=== PATIENT | female | born 1980 | race Caucasian/White ===

== ENCOUNTER 2019-05-02 11:35 | Emergency (ER) | payer MEDICAID, SELFPAY ==
[2019-05-02 12:00] VITALS: BP 149/99; PULSE 96; RESP 16; TEMP 36.8; O2SAT 97; BMI 39.1
--- NOTE | 2019-05-02 12:13 | ED_ITS ---
HPI - Abdominal Pain General: Chief Complaint: Abdominal Pain Stated Complaint: Lower abd pain Time Seen by Provider: 05/02/19 12:13 Source: patient Mode of arrival: ambulatory Limitations: no limitations History of Present Illness: HPI narrative: Patient is a 38-year-old female who presents to ED today with complaints of right lower abdominal pain over the past 3 days; she reports nausea without vomiting; reports normal defecation and urinary habits; denies fever/chills; denies previous symptoms; patient reports pain is been constant over the past 3 days; she has not found any alleviating or worsening factors to her discomfort MD elicited complaint: abdominal pain Location: RLQ Radiation: none Migration to: no migration Exacerbating factors: nothing Relieving factors: nothing Associated Symptoms: Reports nausea; Denies belching, bloating, change in stool character, chills, diarrhea, dysuria, excessive flatus, fever(s), heartburn, fecal incontinence, syncope and vomiting Review of Systems Const: Denies: fever or chills Eyes: Denies: change in vision or blurry vision Card: Denies: chest pain, palpitations, irregular heart rhythm, lightheadedness, syncope or shortness of breath on exertion Resp: Denies: shortness of breath, productive cough or pain on inspiration GI: Reports: abdominal pain and nausea; Denies: vomiting, difficulty swallowing, heartburn/indigestion, diarrhea, bloating, belching, excessive passing of gas, fecal incontinence, painful bowel movements or change in stool character : Denies: flank pain, difficulty urinating, painful urination, urinary frequency, urinary urgency or urinary hesitancy Musc: Denies: neck pain, back pain or joint pain Skin/Breast: Denies: rash PFSH ED PFSH: Statuses (acute, chronic, etc) shown below reflect problem list status as previously entered and may not be historically accurate Social History (Updated 04/20/19 @ 09:34 by Amy Tabares LPN) Smoking and tobacco status: current every day smoker cigarettes Packs smoked per day: 0.5 Alcohol intake: never Lives independently: No Household members: children Marital status: / Current occupational status: unemployed Current gender identity: Female Physical Exam Const: COMMON NORMALS: no apparent distress, oriented x3 and alert NUTRITIONAL APPEARANCE: obese morbidly obese HENMT: COMMON NORMALS: normocephalic and head/scalp atraumatic HEAD & SCALP: normocephalic and atraumatic Chest: COMMONS NORMALS: inspection of chest normal Resp: COMMON NORMALS: normal respiratory effort and clear to auscultation bilaterally AUSCULTATION: clear to auscultation bilaterally Cardio: COMMON NORMALS: regular rate and regular rhythm RATE: regular rate RHYTHM: regular rhythm GI: COMMON NORMALS: normal to inspection, nondistended, normoactive bowel sounds, no hepatosplenomegaly and no masses AUSCULTATION: Yes normoactive bowel sounds PALPATION: Yes tender Details: RLQ and other, Yes no hepatosplenomegaly, Yes rebound tenderness present and Yes other : COMMON NORMALS: Yes no CVA tenderness BLADDER/KIDNEY EXAM: Yes no CVA tenderness Back/Pelvis: COMMON NORMALS: no CVA tenderness and thoracic and lumbar spine normal to inspection Extremity: COMMON NORMALS: normal to inspection Neuro: COMMON NORMALS: oriented x3 SENSORIUM/ORIENTATION: Yes alert Skin: COMMON NORMALS: no rashes or lesions noted GENERAL SKIN EXAM: no rashes or lesions noted Course Vital Signs: Vital signs: Vital Signs Temperature 98.2 F 05/02/19 12:00 Pulse Rate 87 05/02/19 16:15 Respiratory Rate 18 05/02/19 16:15 Blood Pressure 127/87 05/02/19 16:15 Pulse Oximetry 99 05/02/19 16:15 MDM - Abdominal Pain MDM Narrative: Medical decision making narrative: pts denies any fb ingestion so CT findings may represent her BP meds taken over the last 48 hours; vitals are normal; recommend follow up with PCP this week or early next for continued symptoms; return to ED precautions given Lab Data: Labs: Lab Results 05/02/19 05/02/19 05/02/19 Range/Units 12:19 12:19 12:19 WBC 10.2 H (4.0-10.0) 10^3/ uL RBC 5.37 H (4.1-5.3) 10^6/u L Hgb 15.8 H (11.5-15.3) g/dL Hct 47.6 H (37.0-47.0) % MCV 88.6 (81-99) fL MCH 29.4 (28.0-34.0) pg MCHC 33.2 (30.0-36.0) g/dL RDW 13.6 (12.1-15.1) % Plt Count 454 H (130-400) 10^3/c mm MPV 10.0 (7.4-10.4) fL Neut % (Auto) 78.5 % Lymph % (Auto) 14.5 % Robertson % (Auto) 4.9 % Eos % (Auto) 1.3 % Baso % (Auto) 0.5 % Neut # (Auto) 8.1 H (1.8-7.7) 10^3/u L Lymph # (Auto) 1.5 (0.8-4.8) 10^3/u L Robertson # (Auto) 0.5 (0.2-0.9) 10^3/u L Eos # (Auto) 0.1 (0.0-0.8) 10^3/u L Baso # (Auto) 0.1 (0.0-0.1) 10^3/u L Nucleated RBC % (a uto) 0 % Nucleated RBCs # 0.0 /100WBC Sodium 136 (136-145) mmol/L Potassium 4.0 (3.5-5.1) mmol/L Chloride 101 (98-107) mmol/L Carbon Dioxide 23 (22-29) mmol/L Anion Gap 16.0 (5-19) BUN 9 (6-20) mg/dL Creatinine 0.7 (0.5-0.9) mg/dL GFR Calculation 94.2 (90-130) mL/min Glucose 135 H (74-109) mg/dL Calcium 9.3 (8.6-10.0) mg/Dl Total Bilirubin 0.3 (0.15-1.2) mg/dL AST 18 (0-32) U/L ALT 18 (0-33) U/L Alkaline Phosphata se 152 H (35-105) IU/L Total Protein 8.3 (6.6-8.7) g/dL Albumin 4.5 (3.5-5.2) g/dL Globulin 3.8 (1.3-4.6) g/dL Lipase 23 (13-60) U/L HCG, Qual Negative (Negative) Urine Color (Yellow) Urine Appearance (CLEAR) Urine pH (5-7) Ur Specific Gravit y (1.005-1.030) Urine Protein (Negative) Urine Glucose (UA) (Normal) Urine Ketones (Negative) Urine Occult Blood (Negative) Urine Nitrate (Negative) Urine Bilirubin (NEGATIVE) Urine Urobilinogen (Negative) mg/dL Ur Leukocyte Carolyn ase (Negative) Urine RBC (0-2) /hpf Urine WBC (0-5) /hpf Ur Squamous Epith Cells (0-5) Urine Bacteria (NONE) 05/02/19 Range/Units 13:00 WBC (4.0-10.0) 10^3/ uL RBC (4.1-5.3) 10^6/u L Hgb (11.5-15.3) g/dL Hct (37.0-47.0) % MCV (81-99) fL MCH (28.0-34.0) pg MCHC (30.0-36.0) g/dL RDW (12.1-15.1) % Plt Count (130-400) 10^3/c mm MPV (7.4-10.4) fL Neut % (Auto) % Lymph % (Auto) % Robertson % (Auto) % Eos % (Auto) % Baso % (Auto) % Neut # (Auto) (1.8-7.7) 10^3/u L Lymph # (Auto) (0.8-4.8) 10^3/u L Robertson # (Auto) (0.2-0.9) 10^3/u L Eos # (Auto) (0.0-0.8) 10^3/u L Baso # (Auto) (0.0-0.1) 10^3/u L Nucleated RBC % (a uto) % Nucleated RBCs # /100WBC Sodium (136-145) mmol/L Potassium (3.5-5.1) mmol/L Chloride (98-107) mmol/L Carbon Dioxide (22-29) mmol/L Anion Gap (5-19) BUN (6-20) mg/dL Creatinine (0.5-0.9) mg/dL GFR Calculation (90-130) mL/min Glucose (74-109) mg/dL Calcium (8.6-10.0) mg/Dl Total Bilirubin (0.15-1.2) mg/dL AST (0-32) U/L ALT (0-33) U/L Alkaline Phosphata se (35-105) IU/L Total Protein (6.6-8.7) g/dL Albumin (3.5-5.2) g/dL Globulin (1.3-4.6) g/dL Lipase (13-60) U/L HCG, Qual (Negative) Urine Color Yellow (Yellow) Urine Appearance Clear (CLEAR) Urine pH 6.0 (5-7) Ur Specific Gravit y 1.015 (1.005-1.030) Urine Protein Neg (Negative) Urine Glucose (UA) Norm (Normal) Urine Ketones Negative (Negative) Urine Occult Blood 2+ H (Negative) Urine Nitrate Negative (Negative) Urine Bilirubin Neg (NEGATIVE) Urine Urobilinogen Norm (Negative) mg/dL Ur Leukocyte Carolyn ase Negative (Negative) Urine RBC 0-4 H (0-2) /hpf Urine WBC 0-4 H (0-5) /hpf Ur Squamous Epith Cells 15-25 H (0-5) Urine Bacteria Trace (NONE) Imaging Data ^: CT Abd/Pel: Radiologist's impression: [place] [address] CT Scan Report Signed Patient: Ruthann Jacobo MR#: [id number] : 1980 Acct:[id number] Age/Sex: 38 / F ADM Date: 05/02/19 Loc: ER Attending Dr: Ordering Physician: Dasha Hendrickson Date of Service: 05/02/19 Procedure(s): CT abdomen pelvis w con* [id number] Accession Number(s): [id number] Report Number: [id number] WS: [id number] CT ABDOMEN AND PELVIS WITH CONTRAST HISTORY: RLQ pain TECHNIQUE: Imaging performed of the abdomen and pelvis with IV contrast. Single phase imaging of the abdomen. Coronal and sagittal reformats are submitted. All CT scans at [facility] use at least one of these dose optimization techniques: automated exposure control; mA and/or kV adjustment per patient size (includes targeted exams where dose is matched to clinical indication); or iterative reconstruction. IV CONTRAST: Omnipaque 300; 95 mL IV. Oral contrast: No DLP: 1915.52 mGy.cm COMPARISON: None available. Lower thorax: Dependent changes at the lung bases. Heart is normal size. Small hiatal hernia. Liver/biliary system: Normal size with no intrahepatic dilatation. Gallbladder: Prior cholecystectomy. Pancreas: Normal. Spleen: Normal. Adrenal glands: Normal. Right kidney: Normal. Left kidney: Normal. Aorta: No aneurysm or significant atherosclerosis. Lymphadenopathy: None. Free fluid: None. GI tract: No GI tract obstruction. The appendix is not definitely visualized. No history of prior appendectomy. There is a linear foreign body measuring 1.7 mm which is hyperdense near the ileocecal valve. May be medicinal or an ingested foreign body. If this is an ingested fo reign body patient at risk for perforation. There are additional scattered high density oral objects in the GI tract therefore suspect these may be medicinal. There is no adjacent inflammation or fluid. Few sigmoid diverticula without acute inflammation. Abdominal wall: No defects, mass or hernia. Pelvis: Prior hysterectomy. Normal urinary bladder. Bones: Unremarkable. CT/CT abdomen pelvis w con* [id number] IMPRESSION: 1. The appendix is not definitely visualized. 2. Linear hyperdense object in the distal small bowel just proximal to the i leocecal valve. This could be medicinal in etiology on ingested foreign body. If this is an ingested foreign body patient is at risk for perforation. At this time there is no obstruction or inflammat ion. No free air. Similar high density objects within the GI tract therefore this may be ingested medicinal material. 3. Prior cholecystectomy and hysterectomy. Dictated By: Zaina Head DO Signed By: Zaina Head DO Signed Date/Time:05/02/19 1520 DD/ 1511 Discharge Plan Discharge Patient Disposition: Home, Self-Care Clinical Impression: Abdominal pain Qualifiers: Abdominal location: right lower quadrant Qualified Code(s): R10.31 - Right lower quadrant pain Condition: Stable Prescriptions: No Action fluticasone propionate [Flonase Allergy Relief] 50 mcg/actuation spray,suspension 1 spray INTRANASAL BID PRN (Reason: unknown) RF: 0 buspirone 15 mg tablet 15 mg PO BID RF: 0 albuterol sulfate [ProAir HFA] 90 mcg/actuation HFA aerosol inhaler 2 puff INHALATION Q6H PRN (Reason: Shortness Of Breath) RF: 0 lisinopril-hydrochlorothiazide 10-12.5 mg tablet 1 tab PO ONCE RF: 0 escitalopram oxalate [Lexapro] 20 mg tablet 20 mg PO DAILY PRN (Reason: unknown) RF: 0 clonidine HCl 0.1 mg tablet 0.1 mg PO DAILY PRN (Reason: Blood Pressure) RF: 0 fluticasone propion-salmeterol [Advair Diskus] 250-50 mcg/dose blister with device 1 inh INHALATION BID RF: 0 aspirin 81 mg tablet,delayed release (DR/EC) 81 mg PO DAILY RF: 0 ergocalciferol (vitamin D2) 50,000 unit capsule 50,000 unit PO Q7D RF: 0 Symbicort 160-4.5 mcg/actuation Hfa Aerosol Inhaler 2 puff INHALATION BID RF: 0 Discharge Orders: Discharge Order (Routine); Ordered 05/02/19 Ordered By: Dasha Hendrickson Referrals: Nikko Geiger FNP [Primary Care Provider] - Discharge Diet: Advance as tolerated Discharge Activity: Increase activity as tolerated Patient Instructions: Abdominal Pain (ED) Activity Restrictions/Additional Instructions: Follow up with primary care for continued pain. Return to ED for worsening pain, fevers greater than 100.4, intractable nausea/vomiting/diarrhea or any other concerns you may have. Discharge Date/Time: 05/02/19 16:16 Coding Level of Care Code ED Utilization Management Manager for Chg Fwd Exam Problem Focused
[2019-05-02 12:25] LABS: Basophils # 0.1 10^3/uL (0.0-0.1); Basophils % 0.5 %; Eosinophils # 0.1 10^3/uL (0.0-0.8); Eosinophils % 1.3 %; Hematocrit 47.6 % (37.0-47.0); Hemoglobin 15.8 g/dL (11.5-15.3); Lymphocytes # 1.5 10^3/uL (0.8-4.8); Lymphocytes % 14.5 %; Mean Corpuscular HGB Conc 33.2 g/dL (30.0-36.0); Mean Corpuscular Hemoglobin 29.4 pg (28.0-34.0); Mean Corpuscular Volume 88.6 fL (81-99); Monocytes # 0.5 10^3/uL (0.2-0.9); Monocytes % 4.9 %; Neutrophils # 8.1 10^3/uL (1.8-7.7); Neutrophils % 78.5 %; Nucleated Red Blood Cells % 0 %; Platelet Count 454 10^3/cmm (130-400); Red Blood Count 5.37 10^6/uL (4.1-5.3); Red Cell Distribution Width 13.6 % (12.1-15.1); White Blood Count 10.2 10^3/uL (4.0-10.0)
--- NOTE | 2019-05-02 12:29 | CT_ITS ---
WS: [id number] CT ABDOMEN AND PELVIS WITH CONTRAST HISTORY: RLQ pain TECHNIQUE: Imaging performed of the abdomen and pelvis with IV contrast. Single phase imaging of the abdomen. Coronal and sagittal reformats are submitted. All CT scans at [facility] use at least one of these dose optimization techniques: automated exposure control; mA and/or kV adjustment per patient size (includes targeted exams where dose is matched to clinical indication); or iterativ e reconstruction. IV CONTRAST: Omnipaque 300; 95 mL IV. Oral contrast: No DLP: 1915.52 mGy.cm COMPARISON: None available. Lower thorax: Dependent changes at the lung bases. Heart is normal size. Small hiatal hernia. Liver/biliary system: Normal size with no intrahepatic dilatation. Gallbladder: Prior cholecystectomy. Pancreas: Normal. Spleen: Normal. Adrenal glands: Normal. Right kidney: Normal. Left kidney: Normal. Aorta: No aneurysm or significant atherosclerosis. Lymphadenopathy: None. Free fluid: None. GI tract: No GI tract obstruction. The appendix is not definitely visualized. No history of prior quinten endectomy. There is a linear foreign body measuring 1.7 mm which is hyperdense near the ileocecal bobo ve. May be medicinal or an ingested foreign body. If this is an ingested foreign body patient at risk for perforation. There are additional scattered high density oral objects in the GI tract therefore suspect these may be medicinal. There is no adjacent inflammation or fluid. Few sigmoid diverticula w ithout acute inflammation. Abdominal wall: No defects, mass or hernia. Pelvis: Prior hysterectomy. Normal urinary bladder. Bones: Unremarkable. CT/CT abdomen pelvis w con* [id number] IMPRESSION: 1. The appendix is not definitely visualized. 2. Linear hyperdense object in the distal small bowel just proximal to the ile ocecal valve. This could be medicinal in etiology on ingested foreign body. If this is an ingested foreign body patient is at risk for perforation. At this ti me there is no obstruction or inflammation. No free air. Similar high density o bjects within the GI tract therefore this may be ingested medicinal material. 3. Prior cholecystectomy and hysterectomy.
[2019-05-02 12:48] LABS: Alanine Aminotransferase 18 U/L (0-33); Albumin Level 4.5 g/dL (3.5-5.2); Alkaline Phosphatase 152 IU/L (35-105); Aspartate Amino Transferase 18 U/L (0-32); Blood Urea Nitrogen 9 mg/dL (6-20); Calcium 9.3 mg/Dl (8.6-10.0); Carbon Dioxide 23 mmol/L (22-29); Chloride 101 mmol/L (98-107); Globulin 3.8 g/dL (1.3-4.6); Glomerular Filtration Rate 94.2 mL/min (90-130); Glucose 135 mg/dL (74-109); Lipase 23 U/L (13-60); Sodium 136 mmol/L (136-145); Total Bilirubin 0.3 mg/dL (0.15-1.2); Total Protein 8.3 g/dL (6.6-8.7)
[2019-05-02 12:59] VITALS: BP 131/87; PULSE 88; RESP 18; O2SAT 96
[2019-05-02] MEDS: sodium chloride 0.9% 1,000 ML 999 ML IV (13:46)
[2019-05-02 13:56] LABS: Add Urine Microscopic? YES; Bilirubin Urine Neg (NEGATIVE); Blood Urine 2+ (Negative); Glucose Urine UA Norm (Normal); Ketones Urine Negative (Negative); Leukocyte Esterase Urine Negative (Negative); Nitrate Urine Negative (Negative); Protein Urine Neg (Negative); Specific Gravity, Urine 1.015 (1.005-1.030); Urine Appearance Clear (CLEAR); Urine Color Yellow (Yellow); Urobilinogen Urine Norm (Negative)
[2019-05-02 14:00] VITALS: BP 141/95; RESP 18; O2SAT 97
[2019-05-02 14:07] LABS: Add Urine Culture? No; Bacteria Urine TRACE; RBC Urine 0-4 /hpf (0-2); Squamous Epithelial Cell Urine 15-25 (0-5); WBC Urine 0-4 /hpf (0-5)
[2019-05-02 14:28] LABS: HCG, Serum Qual Negative (Negative)
[2019-05-02] MEDS: iohexol 300 mg/mL 100 mL Btl IV (14:47)
[2019-05-02 16:15] VITALS: BP 127/87; PULSE 87; RESP 18; O2SAT 99
== END 2019-05-02 16:16 | disposition home or self-care (01) ==
PROVIDERS: Emergency Provider Physician Assistant; Family Provider Nurse Practitioner Family; PCP Nurse Practitioner Family
DX: R10.31 Right lower quadrant pain (principal); Z79.82 Long term (current) use of aspirin; F17.210 Nicotine dependence, cigarettes, uncomplicated
CPT/HCPCS: 36415; 74177; 80053; 81003; 83690; 84703; 85025; 96360; 99282; A9270; J7030; Q9967

== ENCOUNTER 2019-06-16 13:28 | Emergency (ER) | payer MEDICAID, SELFPAY ==
[2019-06-16 13:36] VITALS: BP 154/98; PULSE 83; RESP 15; TEMP 36.9; O2SAT 98; BMI 38.9
--- NOTE | 2019-06-16 13:52 | W.ED.EXTPRO ---
HPI - Extremity Problem General: Chief complaint: Extremity Problem,Nontraumatic Stated complaint: right leg pain/no accident Time Seen by Provider: 06/16/19 13:42 History of Present Illness: HPI Narrative: Patient complains about pain going down the right hip and leg. Has gone on since this morning when she woke up. Did do some lifting her nephew this last couple days. MD Complaint: extremity pain Onset (ago): hour(s) Pain Consistency: constant Location: right Severity scale (1-10): 6 Quality: aching Radiation: distal Relieving factors: rest Exacerbating factors: range of motion Associated symptoms: Reports no associated symptoms; Deny chest pain, fever(s) or rash Review of Systems Const: Denies: fever, chills or body aches Eyes: Denies: change in vision or blurry vision ENMT: Denies: throat pain or nasal congestion Card: Denies: chest pain or shortness of breath on exertion Resp: Denies: shortness of breath, productive cough or non-productive cough GI: Denies: abdominal pain, nausea or vomiting Musc: Reports: other (Back pain sciatica); Denies: extremity pain Skin/Breast: Denies: rash Neuro: Denies: headache Psych: Denies: anxiety or depression Bola/Lymph: Denies: easy bruising PFSH ED PFSH: Social History (Updated 04/20/19 @ 09:34 by Amy Tabares LPN) Smoking and tobacco status: current every day smoker cigarettes Packs smoked per day: 0.5 Alcohol intake: never Lives independently: No Household members: children Marital status: / Current occupational status: unemployed Current gender identity: Female Physical Exam Const: COMMON NORMALS: no apparent distress, average body habitus and oriented x3 HENMT: COMMON NORMALS: normocephalic HEAD & SCALP: normal to inspection and normocephalic FACE & SINUS: normal facial exam Eye: COMMON NORMALS: conjunctivae normal GENERAL EYE: normal appearance of both eyes CONJUNCTIVA: Yes conjunctivae normal Neck/C-Spine: COMMON NORMALS: no JVD Chest: COMMONS NORMALS: inspection of chest normal Resp: COMMON NORMALS: normal respiratory effort and clear to auscultation bilaterally AUSCULTATION: clear to auscultation bilaterally Cardio: COMMON NORMALS: no JVD, regular rate and regular rhythm RATE: regular rate RHYTHM: regular rhythm GI: COMMON NORMALS: normal to inspection, nondistended, normoactive bowel sounds Back/Pelvis: PELVIS: Yes other (Pain right sciatica from the hip down to mid thigh. Pain with straight leg lift on that side.) COCCYX: other (Pain right sciatica from the hip down to mid thigh. Pain with straight leg lift on that side.) Extremity: COMMON NORMALS: normal to inspection and full ROM Neuro: COMMON NORMALS: oriented x3 Course Vital Signs: Vital signs: Vital Signs Temperature 98.4 F 06/16/19 13:36 Pulse Rate 83 06/16/19 13:36 Respiratory Rate 15 06/16/19 13:36 Blood Pressure 154/98 06/16/19 13:36 Pulse Oximetry 98 06/16/19 13:36 Discharge Plan Discharge Prescriptions: No Action fluticasone propionate [Flonase Allergy Relief] 50 mcg/actuation spray,suspension 1 spray INTRANASAL BID PRN (Reason: unknown) RF: 0 buspirone 15 mg tablet 15 mg PO BID RF: 0 albuterol sulfate [ProAir HFA] 90 mcg/actuation HFA aerosol inhaler 2 puff INHALATION Q6H PRN (Reason: Shortness Of Breath) RF: 0 lisinopril-hydrochlorothiazide 10-12.5 mg tablet 1 tab PO ONCE RF: 0 escitalopram oxalate [Lexapro] 20 mg tablet 20 mg PO DAILY PRN (Reason: unknown) RF: 0 clonidine HCl 0.1 mg tablet 0.1 mg PO DAILY PRN (Reason: Blood Pressure) RF: 0 fluticasone propion-salmeterol [Advair Diskus] 250-50 mcg/dose blister with device 1 inh INHALATION BID RF: 0 aspirin 81 mg tablet,delayed release (DR/EC) 81 mg PO DAILY RF: 0 ergocalciferol (vitamin D2) 50,000 unit capsule 50,000 unit PO Q7D RF: 0 Symbicort 160-4.5 mcg/actuation Hfa Aerosol Inhaler 2 puff INHALATION BID RF: 0 Coding Level of Care Code ED Hospital Clinic Assistant for Demian Horan
--- NOTE | 2019-06-16 14:05 | PC.NURSE ---
Pt states she woke up this morning with extreme pain in right lower extremity. Denies any injury
[2019-06-16 14:06] VITALS: PULSE 85; RESP 16; O2SAT 97
== END 2019-06-16 14:07 | disposition home or self-care (01) ==
LOC: ER 14:07
PROVIDERS: Emergency Provider Nurse Practitioner Family; Family Provider Nurse Practitioner Family; PCP Nurse Practitioner Family
DX: M54.31 Sciatica, right side (principal); F17.210 Nicotine dependence, cigarettes, uncomplicated
CPT/HCPCS: 99281

== ENCOUNTER → 2019-10-18 10:03 | Outpatient (BNVA) | payer MEDICAID, SELFPAY | PROVIDERS: Family Provider Nurse Practitioner Family; PCP Nurse Practitioner Family; Visit Provider Urology | DX: R31.29 Other microscopic hematuria (principal) | CPT/HCPCS: 80053; 81001; 88112 ==

== ENCOUNTER 2020-08-18 18:52 | Emergency (ER) | payer MEDICAID, SELFPAY ==
[2020-08-18 19:23] VITALS: BP 132/92; PULSE 101; RESP 16; TEMP 36.6; O2SAT 94; BMI 34.4
--- NOTE | 2020-08-18 21:35 | CTR_ITS ---
PROCEDURE INFORMATION: Exam: CT Abdomen And Pelvis With Contrast Exam date and time: 08/18/2020 9:54 PM Age: 39 years old Clinical indication: Abdominal pain; Localized; Right lower quadrant (rlq); Prior surgery; Surgery type: Gb, hyst; Additional info: Rlq pain TECHNIQUE: Imaging protocol: Computed tomography of the abdomen and pelvis with contrast. Radiation optimization: All CT scans at this facility use at least one of these dose optimization techniques: automated exposure control; mA and/or kV adjustment per patient size (includes targeted exams where dose is matched to clinical indication); or iterative reconstruction. Contrast material: OMNI 300; Contrast volume: 95 ml; Contrast route: INTRAVENOUS (IV); COMPARISON: CT abdomen pelvis w con* [id number] 05/02/2019 3:01 PM RADIATION DOSE METRICS: Total DLP (mGy-cm): 1803.34 FINDINGS: Liver: Normal. No mass. Gallbladder and bile ducts: Cholecystectomy. Pancreas: Normal. No ductal dilation. Spleen: Normal. No splenomegaly. Adrenal glands: Normal. No mass. Kidneys and ureters: Normal. No hydronephrosis. Stomach and bowel: Unremarkable. No obstruction. No mucosal thickening. Appendix: No evidence of appendicitis. Intraperitoneal space: Trace free fluid in the pelvis. Vasculature: Unremarkable. No abdominal aortic aneurysm. Lymph nodes: Unremarkable. No enlarged lymph nodes. Urinary bladder: Unremarkable as visualized. Reproductive: Hysterectomy. Bones/joints: No acute fracture. Soft tissues: Unremarkable. CT/CT abdomen pelvis w con* [id number] IMPRESSION: No acute findings. Radiation Dose CTDIVOL = (mGy): DLP = 1803.34 (mGy-cm)
[2020-08-18 21:47] LABS: HCG Qualitative Urine. Negative (Negative)
[2020-08-18 21:50] LABS: Bilirubin Urine Neg (Negative); Blood Urine 2+ (Negative); Glucose Urine UA Norm (Normal); Ketones Urine Negative (Negative); Leukocyte Esterase Urine Negative (Negative); Nitrate Urine Negative (Negative); Protein Urine Neg (Negative); Specific Gravity, Urine 1.015 (1.005-1.030); Urine Appearance Clear (CLEAR); Urine Color Yellow (Yellow); Urobilinogen Urine Norm (Negative); pH Urine 5 (5-7)
[2020-08-18 21:51] LABS: Basophils # 0.1 10^3/uL (0.0-0.1); Basophils % 0.7 %; Eosinophils # 0.1 10^3/uL (0.0-0.8); Eosinophils % 0.7 %; Hematocrit 43.8 % (37.0-47.0); Hemoglobin 14.8 g/dL (11.5-15.3); Lymphocytes # 2.5 10^3/uL (0.8-4.8); Lymphocytes % 16.1 %; Mean Corpuscular HGB Conc 33.8 g/dL (30.0-36.0); Mean Corpuscular Volume 88.7 fL (81-99); Mean Platelet Volume 9.9 fL (7.4-10.4); Monocytes # 0.6 10^3/uL (0.2-0.9); Neutrophils # 12.01 10^3/uL (1.8-7.7); Neutrophils % 78.2 %; Nucleated Red Blood Cells % 0 %; Platelet Count 419 10^3/cmm (130-400); Red Blood Count 4.94 10^6/uL (4.1-5.3); Red Cell Distribution Width 13.2 % (12.1-15.1); White Blood Count 15.4 10^3/uL (4.0-10.0)
[2020-08-18 21:51] LABS: Add Urine Microscopic? YES; Bacteria Urine 1+ /hpf; RBC Urine 0-4 /hpf (0-2); Squamous Epithelial Cell Urine 0-4 /hpf (0-5); WBC Urine 0-4 /hpf (0-5)
[2020-08-18] MEDS: iohexol 300 mg/mL 100 mL Btl IV (21:56)
[2020-08-18 22:07] LABS: Alanine Aminotransferase 18 U/L (0-33); Albumin Level 4.4 g/dL (3.5-5.2); Alkaline Phosphatase 113 IU/L (35-105); Anion Gap 15.2 (5-19); Aspartate Amino Transferase 11 U/L (0-32); Blood Urea Nitrogen 6 mg/dL (6-20); Calcium 8.9 mg/dL (8.5-10.5); Carbon Dioxide 23 mmol/L (22-29); Chloride 100 mmol/L (98-107); Globulin 3.1 g/dL (1.3-4.6); Glomerular Filtration Rate 138.1 mL/min (90-130); Glucose 111 mg/dL (65-115); Lipase 32 U/L (13-60); Osmolality Calculated 276 mOsm/kg (285-295); Potassium 4.2 mmol/L (3.5-5.1); Sodium 134 mmol/L (136-145); Total Bilirubin 0.2 mg/dL (0.15-1.2); Total Protein 7.5 g/dL (6.6-8.7)
[2020-08-18 22:46] VITALS: BP 135/91; PULSE 75; RESP 16; O2SAT 99
--- NOTE | 2020-08-18 22:48 | ED_ITS ---
HPI - Abdominal Pain General: Chief Complaint: Abdominal Pain Stated Complaint: r side abd pain Time Seen by Provider: 08/18/20 21:35 Source: patient Mode of arrival: ambulatory Limitations: no limitations History of Present Illness: MD elicited complaint: abdominal pain Pertinent past history: none Onset (ago): hour(s) (2) Pain Consistency: constant Location: RLQ Quality: stabbing Radiation: none Migration to: no migration Exacerbating factors: nothing Relieving factors: nothing Associated Symptoms: Denies anorexia, belching, bloating, change in bowel habits, change in stool character, chills, coffee ground emesis, constipation, GI cramping, diarrhea, dyspepsia, dysuria, excessive flatus, fever(s), heartburn, hematochezia, hematuria, hematemesis, fecal incontinence, loose stools, melena, nausea, poor appetite, syncope and vomiting Review of Systems General: Reports: 10 or more systems reviewed and unremarkable except in HPI and below Const: Denies: fever(s) or chills Card: Denies: syncope GI: Denies: nausea, vomiting, hematemesis, coffee ground emesis, heartburn, diarrhea, constipation, bloating, GI cramping, belching, excessive flatus, fecal incontinence, change in bowel habits, change in stool character, hematochezia or melena : Denies: dysuria or hematuria PFSH ED PFSH: Medical History (Reviewed 08/19/20 @ 23:35 by Koko Clements MD, [facility] [place]) Microhematuria Surgical History (Reviewed 08/19/20 @ 23:35 by Koko Clements MD, [facility] [place]) H/O: hysterectomy History of cholecystectomy History of tubal ligation Family History (Reviewed 08/19/20 @ 23:35 by Koko Clements MD, [facility] [place]) Father Diabetes Hyperlipidemia Grandmother Diabetes Hypertension Stroke Sister Hypertension Brother Heart disease Social History (Reviewed 08/19/20 @ 23:35 by Koko Clements MD, [facility] [place]) Smoking and tobacco status: current every day smoker cigarettes Packs smoked per day: 0.5 Alcohol intake: never Lives independently: No Household members: children Marital status: / Current occupational status: unemployed Current gender identity: Female Physical Exam Const: COMMON NORMALS: no acute distress, average body habitus, patient oriented x3, no limitations, healthy appearing, alert and well nourished HENMT: COMMON NORMALS: normocephalic, atraumatic and moist oral mucous membranes HEAD & SCALP: normocephalic and atraumatic Neck/C-Spine: COMMON NORMALS: no meningeal signs and no JVD Resp: COMMON NORMALS: normal respiratory effort, No retractions, No use of accessory muscles, clear to auscultation bilaterally and percussion normal AUSCULTATION: clear to auscultation bilaterally PERCUSSION: percussion normal Cardio: COMMON NORMALS: no JVD, regular rate, regular rhythm, S1 normal heart sound present, S2 normal heart sound present, No gallops present (Cardio), No clicks present (Cardio), No murmurs present (Cardio), No rub (Cardio) and Peripheral pulses 2+ throughout RATE: regular rate RHYTHM: regular rhythm HEART SOUNDS: S1 normal heart sound present and S2 normal heart sound present PERIPHERAL PULSES: Peripheral pulses 2+ throughout GI: COMMON NORMALS: Normal to inspection, nondistended, normoactive bowel sounds present, Soft to palpation, No hepatosplenomegaly present, no masses and no bruits PALPATION: Yes Soft to palpation, Yes Tenderness to palpation present (GI) Details: RLQ, No Guarding due to palpation present (GI), No Rigid due to palpation, Yes No hepatosplenomegaly present and No Rebound tenderness present Extremity: COMMON NORMALS: normal to inspection, full ROM, capillary refill normal, no calf tenderness and no pedal edema Neuro: COMMON NORMALS: patient oriented x3 SENSORIUM/ORIENTATION: Yes alert MENINGEAL SIGNS: Yes no meningeal signs Skin: COMMON NORMALS: no rashes or lesions noted, no wounds, turgor normal, no jaundice, no petechiae and no mottling GENERAL SKIN EXAM: no rashes or lesions noted and turgor normal Course Reevaluation(s): Reevaluation #1: Discussed her lab and imaging findings with her. Unremarkable for acute findings other than mild leukocytosis. CT scan was negative for intra-abdominal acute findings. She will therefore be discharged home with no new orders. She voiced understanding and is in agreement with the plan. Time: 22:49 Vital Signs: Vital signs: Vital Signs Temperature 97.9 F 08/18/20 19:23 Pulse Rate 75 08/18/20 22:46 Respiratory Rate 16 08/18/20 22:46 Blood Pressure 135/91 08/18/20 22:46 Pulse Oximetry 99 08/18/20 22:46 MDM - Abdominal Pain MDM Narrative: Medical decision making narrative: Patient presents to the ED with RLQ pain and evaluation in the ED was negative for acute findings. She is discharged home with no new orders. Medical Records: Attestation: I reviewed the patient's medical records. Lab Data: Attestation: I reviewed the patient's lab results. Labs: Lab Results 08/18/20 08/18/20 08/18/20 Range/Units 21:45 21:45 Unknown WBC 15.4 H (4.0-10.0) 10^3/ uL RBC 4.94 (4.1-5.3) 10^6/u L Hgb 14.8 (11.5-15.3) g/dL Hct 43.8 (37.0-47.0) % MCV 88.7 (81-99) fL MCH 30.0 (28.0-34.0) pg MCHC 33.8 (30.0-36.0) g/dL RDW 13.2 (12.1-15.1) % Plt Count 419 H (130-400) 10^3/c mm MPV 9.9 (7.4-10.4) fL Neut % (Auto) 78.2 % Lymph % (Auto) 16.1 % [place] % (Auto) 4.0 % Eos % (Auto) 0.7 % Baso % (Auto) 0.7 % Neut # (Auto) 12.01 H (1.8-7.7) 10^3/u L Lymph # (Auto) 2.5 (0.8-4.8) 10^3/u L [place] # (Auto) 0.6 (0.2-0.9) 10^3/u L Eos # (Auto) 0.1 (0.0-0.8) 10^3/u L Baso # (Auto) 0.1 (0.0-0.1) 10^3/u L Nucleated RBC % (a uto) 0 % Nucleated RBCs # 0.0 /100WBC Sodium 134 L (136-145) mmol/L Potassium 4.2 (3.5-5.1) mmol/L Chloride 100 (98-107) mmol/L Carbon Dioxide 23 (22-29) mmol/L Anion Gap 15.2 (5-19) BUN 6 (6-20) mg/dL Creatinine 0.5 (0.5-0.9) mg/dL GFR Calculation 138.1 H (90-130) mL/min Glucose 111 (65-115) mg/dL Calculated Osmolal ity 276 L (285-295) mOsm/k g Calcium 8.9 (8.5-10.5) mg/dL Total Bilirubin 0.2 (0.15-1.2) mg/dL AST 11 (0-32) U/L ALT 18 (0-33) U/L Alkaline Phosphata se 113 H (35-105) IU/L Total Protein 7.5 (6.6-8.7) g/dL Albumin 4.4 (3.5-5.2) g/dL Globulin 3.1 (1.3-4.6) g/dL Lipase 32 (13-60) U/L HCG, Qual Negative (Negative) Urine Color (Yellow) Urine Appearance (CLEAR) Urine pH (5-7) Ur Specific Gravit y (1.005-1.030) Urine Protein (Negative) Urine Glucose (UA) (Normal) Urine Ketones (Negative) Urine Blood (Negative) Urine Nitrate (Negative) Urine Bilirubin (Negative) Urine Urobilinogen (Negative) mg/dL Ur Leukocyte Carolyn ase (Negative) Urine RBC (0-2) /hpf Urine WBC (0-5) /hpf Ur Squamous Epith Cells (0-5) /hpf Amorphous Sediment Urine Bacteria (NONE) /hpf 08/18/20 Range/Units Unknown WBC (4.0-10.0) 10^3/ uL RBC (4.1-5.3) 10^6/u L Hgb (11.5-15.3) g/dL Hct (37.0-47.0) % MCV (81-99) fL MCH (28.0-34.0) pg MCHC (30.0-36.0) g/dL RDW (12.1-15.1) % Plt Count (130-400) 10^3/c mm MPV (7.4-10.4) fL Neut % (Auto) % Lymph % (Auto) % [place] % (Auto) % Eos % (Auto) % Baso % (Auto) % Neut # (Auto) (1.8-7.7) 10^3/u L Lymph # (Auto) (0.8-4.8) 10^3/u L [place] # (Auto) (0.2-0.9) 10^3/u L Eos # (Auto) (0.0-0.8) 10^3/u L Baso # (Auto) (0.0-0.1) 10^3/u L Nucleated RBC % (a uto) % Nucleated RBCs # /100WBC Sodium (136-145) mmol/L Potassium (3.5-5.1) mmol/L Chloride (98-107) mmol/L Carbon Dioxide (22-29) mmol/L Anion Gap (5-19) BUN (6-20) mg/dL Creatinine (0.5-0.9) mg/dL GFR Calculation (90-130) mL/min Glucose (65-115) mg/dL Calculated Osmolal ity (285-295) mOsm/k g Calcium (8.5-10.5) mg/dL Total Bilirubin (0.15-1.2) mg/dL AST (0-32) U/L ALT (0-33) U/L Alkaline Phosphata se (35-105) IU/L Total Protein (6.6-8.7) g/dL Albumin (3.5-5.2) g/dL Globulin (1.3-4.6) g/dL Lipase (13-60) U/L HCG, Qual (Negative) Urine Color Yellow (Yellow) Urine Appearance Clear (CLEAR) Urine pH 5 (5-7) Ur Specific Gravit y 1.015 (1.005-1.030) Urine Protein Neg (Negative) Urine Glucose (UA) Norm (Normal) Urine Ketones Negative (Negative) Urine Blood 2+ H (Negative) Urine Nitrate Negative (Negative) Urine Bilirubin Neg (Negative) Urine Urobilinogen Norm (Negative) mg/dL Ur Leukocyte Carolyn ase Negative (Negative) Urine RBC 0-4 H (0-2) /hpf Urine WBC 0-4 H (0-5) /hpf Ur Squamous Epith Cells 0-4 H (0-5) /hpf Amorphous Sediment Not Reportable Urine Bacteria 1+ H (NONE) /hpf Imaging Data ^: CT Abd/Pel: Attestation: I personally reviewed and interpreted this imaging study as follows: Radiologist's impression: [place] [id number] [facility], [place] [address] Scan ReportSigned Patient: Ruthann Jacobo #: [id number]: 1980Acct#:[id number]/S ex: 39 / FADM Date: 08/18/20Loc: ERRoom/Bed:Attending Dr: Ordering Provider/Ordering MD: Koko Clements MD, [facility] [place] Date of Service: 08/18/20 Procedure(s): CT abdomen pelvis w con* [id number] Accession Number(s): [id number] Report Number: [id number] PROCEDURE INFORMATION: Exam: CT Abdomen And Pelvis With Contrast Exam date and time: 08/18/2020 9:54 PM Age: 39 years old Clinical indication: Abdominal pain; Localized; Right lower quadrant (rlq); Prior surgery; Surgery type: Gb, hyst; Additional info: Rlq pain TECHNIQUE: Imaging protocol: Computed tomography of the abdomen and pelvis with contrast. Radiation optimization: All CT scans at this facility use at least one of these dose optimization techniques: automated exposure control; mA and/or kV adjustment per patient size (includes targeted exams where dose is matched to clinical indication); or iterative reconstruction. Contrast material: OMNI 300; Contrast volume: 95 ml; Contrast route: INTRAVENOUS (IV); COMPARISON: CT abdomen pelvis w con* [id number] 05/02/2019 3:01 PM RADIATION DOSE METRICS: Total DLP (mGy-cm): 1803.34 FINDINGS: Liver: Normal. No mass. Gallbladder and bile ducts: Cholecystectomy. Pancreas: Normal. No ductal dilation. Spleen: Normal. No splenomegaly. Adrenal glands: Normal. No mass. Kidneys and ureters: Normal. No hydronephrosis. Stomach and bowel: Unremarkable. No obstruction. No mucosal thickening. Appendix: No evidence of appendicitis. Intraperitoneal space: Trace free fluid in the pelvis. Vasculature: Unremarkable. No abdominal aortic aneurysm. Lymph nodes: Unremarkable. No enlarged lymph nodes. Urinary bladder: Unremarkable as visualized. Reproductive: Hysterectomy. Bones/joints: No acute fracture. Soft tissues: Unremarkable. CT/CT abdomen pelvis w con* [id number] IMPRESSION: No acute findings. Radiation Dose CTDIVOL = (mGy): DLP = 1803.34 (mGy-cm) Dictated By:Kadeem Dial MDSigned By:Kadeem Dial MDSigned Date/Time:08/18/202244DD/ 42 Discharge Plan Discharge Patient Disposition: Home Clinical Impression: Abdominal pain, RLQ Condition: Stable Prescriptions: Continued albuterol sulfate [ProAir HFA] 90 mcg/actuation HFA aerosol inhaler 2 puff INHALATION Q6H PRN (Reason: Shortness Of Breath) RF: 0 atorvastatin 40 mg tablet 40 mg PO DAILY RF: 0 methocarbamol 750 mg tablet 750 mg PO TID RF: 0 Trulicity 0.75 mg/0.5 mL pen injector SUBCUT RF: 0 ascorbate calcium (vitamin C) PO RF: 0 lidocaine HCl 2 % jelly 1 applic INTRA-URET ONCE Qty: 1 RF: 0 meloxicam 15 mg tablet 15 mg PO DAILY RF: 0 cetirizine 10 mg capsule 10 mg PO DAILY RF: 0 nitroglycerin 0.4 mg tablet, sublingual See Rx Instructions .ROUTE .COMPLEX Qty: 25 RF: 3 ergocalciferol (vitamin D2) 50,000 unit capsule 50,000 unit PO Q7D RF: 0 Symbicort 160-4.5 mcg/actuation Hfa Aerosol Inhaler 2 puff INHALATION BID RF: 0 Discharge Orders: Discharge ED (Routine); Ordered 08/18/20 Ordered By: Koko Clements Referrals: Samina Garcia, [employer] [Primary Care Provider] - 1-3 days Discharge Diet: Usual diet Discharge Activity: Increase activity as tolerated Patient Instructions: Abdominal Pain (ED) Activity Restrictions/Additional Instructions: Return for any new or worsening symptoms. Follow-up with your primary care provider within 3 days. Continue home medications. Coding Level of Care Code ED [employer]ier for Demian Horan
== END 2020-08-18 22:54 | disposition home or self-care (01) ==
PROVIDERS: Emergency Medicine; Emergency Provider Family Medicine; PCP Nurse Practitioner Family
DX: R10.31 Right lower quadrant pain (principal); F17.210 Nicotine dependence, cigarettes, uncomplicated
CPT/HCPCS: 74177; 80053; 81001; 81025; 83690; 85025; 99283; Q9967

== ENCOUNTER → 2021-01-26 08:39 | Outpatient (BNVA) | payer MEDICAID, SELFPAY | PROVIDERS: PCP Nurse Practitioner Family; Visit Provider Urology | DX: R31.29 Other microscopic hematuria (principal) | CPT/HCPCS: 81003 ==

== ENCOUNTER → 2021-02-02 08:40 | Outpatient (BNVA) | payer MEDICAID, SELFPAY | PROVIDERS: PCP Nurse Practitioner Family; Visit Provider Specialist | DX: M25.561 Pain in right knee (principal) | CPT/HCPCS: 73560; 73565 ==

== ENCOUNTER 2021-03-30 10:59 | Outpatient (CLI) | payer MEDICAID, SELFPAY ==
--- NOTE | 2021-03-30 11:45 | MR_ITS ---
WS: [id number] MRI RIGHT KNEE HISTORY: M25.569 - Pain in unspecified knee COMPARISON: Knee radiograph 02/02/2021 Anterior cruciate ligament: Normal course of the ACL. No tear identified. Posterior cruciate ligament: Intact. Medial collateral ligament: Intact. Posterior lateral corner structures: Intact. Medial menisci: Intact. Normal signal, size and shape. Lateral meniscus: Intact. Normal signal, size and shape. Extensor mechanism: Distal quadriceps tendon and patellar tendons are intact. Fluid and soft tissue: No joint effusion. No Bowden's cyst. Osseous and articular structures: Patellofemoral compartment: Normal. Medial compartment: Very minimal narrowing of the joint space with fissuring of the cartilage. No ful l thickness defect or marrow edema. Lateral compartment: Normal. There is a very small amount of increased T2 signal in the subcutaneous soft tissue over the medial k nee near the distal femur. Small amount of increased signal at the head of the medial gastrocnemius. There is also very small amount of increased signal in the posterior distal femoral diaphysis which c ould be from a prior bone contusion. No fractures identified. MR/MR knee RT wo con* [id number] IMPRESSION: 1. Minimal soft tissue edema likely from a prior contusion involving the media l knee. Small amount of edema at the insertion site of the medial head of the g astrocnemius. Partial insertion site tear is suspected. 2. Very small amount of increased marrow signal in the posterior distal femora l diaphysis may be from a minor trabecular injury. No fracture. 3. No joint effusion.
== END 2021-03-30 11:00 | disposition home or self-care (01) ==
LOC: RADSHAW 11:01
PROVIDERS: PCP Nurse Practitioner Family; Visit Provider Specialist
DX: G62.89 Other specified polyneuropathies (principal); M25.562 Pain in left knee; M62.81 Muscle weakness (generalized); S89.90XA Unspecified injury of unspecified lower leg, initial encounter; F17.210 Nicotine dependence, cigarettes, uncomplicated; X58.XXXA Exposure to other specified factors, initial encounter
CPT/HCPCS: 73721; 95886; 95909

== ENCOUNTER → 2021-06-24 08:01 | Outpatient (BNVA) | payer MEDICAID, SELFPAY | PROVIDERS: PCP Nurse Practitioner Family; Referring Provider Nurse Practitioner Family; Visit Provider Specialist | DX: E11.42 Type 2 diabetes mellitus with diabetic polyneuropathy (principal); Z79.899 Other long term (current) drug therapy; G57.10 Meralgia paresthetica, unspecified lower limb; M21.41 Flat foot [pes planus] (acquired), right foot; M21.42 Flat foot [pes planus] (acquired), left foot; M54.9 Dorsalgia, unspecified; G89.29 Other chronic pain; M17.11 Unilateral primary osteoarthritis, right knee | CPT/HCPCS: 64447; 64450; 99214; 99215; J1030; J3490 ==

== ENCOUNTER 2021-09-16 12:07 | Oncology outpatient (recurring) (ONCR) | payer MEDICAID, SELFPAY ==
[2021-09-16 12:58] LABS: Basophils # 0.1 10^3/uL (0.0-0.1); Basophils % 0.8 %; Eosinophils # 0.1 10^3/uL (0.0-0.8); Eosinophils % 0.8 %; Hematocrit 44.9 % (37.0-47.0); Hemoglobin 14.9 g/dL (11.5-15.3); Lymphocytes # 2.3 10^3/uL (0.8-4.8); Lymphocytes % 21.8 %; Mean Corpuscular HGB Conc 33.2 g/dL (30.0-36.0); Mean Corpuscular Hemoglobin 29.3 pg (28.0-34.0); Mean Corpuscular Volume 88.4 fl (81-99); Mean Platelet Volume 10.1 fL (7.4-10.4); Monocytes # 0.5 10^3/uL (0.2-0.9); Monocytes % 4.9 %; Neutrophils # 7.57 10^3/uL (1.8-7.7); Neutrophils % 71.3 %; Nucleated Red Blood Cells % 0 %; Platelet Count 397 10^3/cmm (130-400); Red Blood Count 5.08 10^6/uL (4.1-5.3); Red Cell Distribution Width 13.4 % (12.1-15.1); White Blood Count 10.6 10^3/uL (4.0-10.0)
== END 2021-09-22 23:59 | disposition home or self-care (01) ==
PROVIDERS: PCP Nurse Practitioner Family; Visit Provider Internal Medicine Hematology & Oncology
DX: D72.829 Elevated white blood cell count, unspecified (principal); M17.11 Unilateral primary osteoarthritis, right knee; J44.9 Chronic obstructive pulmonary disease, unspecified; E11.9 Type 2 diabetes mellitus without complications; Z79.4 Long term (current) use of insulin; F17.200 Nicotine dependence, unspecified, uncomplicated
CPT/HCPCS: 85025; 99203; 99999

== ENCOUNTER 2021-11-26 11:05 | Oncology outpatient (recurring) (ONCR) | payer MEDICAID, SELFPAY ==
[2021-11-26 11:49] LABS: Basophils # 0.1 10^3/uL (0.0-0.1); Basophils % 0.9 %; Eosinophils # 0.1 10^3/uL (0.0-0.8); Eosinophils % 1.2 %; Hematocrit 44.3 % (37.0-47.0); Hemoglobin 14.6 g/dL (11.5-15.3); Lymphocytes # 2.6 10^3/uL (0.8-4.8); Lymphocytes % 26.7 %; Mean Corpuscular Hemoglobin 29.4 pg (28.0-34.0); Mean Corpuscular Volume 89.1 fl (81-99); Mean Platelet Volume 10.2 fL (7.4-10.4); Monocytes # 0.5 10^3/uL (0.2-0.9); Monocytes % 4.8 %; Neutrophils # 6.41 10^3/uL (1.8-7.7); Neutrophils % 66.3 %; Nucleated Red Blood Cells % 0 %; Platelet Count 419 10^3/cmm (130-400); Red Blood Count 4.97 10^6/uL (4.1-5.3); White Blood Count 9.7 10^3/uL (4.0-10.0)
== END 2021-12-23 23:59 | disposition home or self-care (01) ==
PROVIDERS: Nurse Practitioner Family; PCP Nurse Practitioner Family; Visit Provider Internal Medicine Hematology & Oncology
DX: D72.829 Elevated white blood cell count, unspecified (principal); F17.210 Nicotine dependence, cigarettes, uncomplicated
CPT/HCPCS: 36415; 85025; 99214; G0463

== ENCOUNTER → 2022-08-26 07:44 | Outpatient (BNVA) | payer MEDICAID, SELFPAY | PROVIDERS: PCP Nurse Practitioner Family; Referring Provider Registered Nurse; Visit Provider Physician Assistant | DX: M54.9 Dorsalgia, unspecified (principal); G89.29 Other chronic pain | CPT/HCPCS: 72110; 99203 ==

== ENCOUNTER 2022-08-30 08:53 | Outpatient (CLI) | payer MEDICAID, SELFPAY ==
--- NOTE | 2022-08-30 | US_ITS ---
DIAGNOSTIC BILATERAL DIGITAL BREAST TOMOSYNTHESIS MAMMOGRAPHY WITH CAD RIGHT breast ultrasound, limited HISTORY: RT BREAST PAIN, pain along the inferior posterior breast. COMPARISON: None available. TECHNIQUE: Bilateral craniocaudad, mediolateral oblique, and mediolateral views are submitted with tomosynthesis and SM. Spot compression RIGHT MLO. Computer aided detection utilized. Breast composition: There are scattered areas of fibroglandular density. No underlying abnormality is noted in the posterior inferior RIGHT breast near the pain marker site. No suspicious masses or calcifications. RIGHT breast ultrasound, limited. Ultrasound directed to the area of pain at 8:00, 7 cm from the nipple. No mass or abnormality is identified. IMPRESSION: BI-RADS: 2-Benign FOLLOW UP: 1 Year Follow-up [facility]ER
--- NOTE | 2022-08-30 09:58 | MM_ITS ---
WS: [id number] DIAGNOSTIC BILATERAL DIGITAL BREAST TOMOSYNTHESIS MAMMOGRAPHY WITH CAD RIGHT breast ultrasound, limited HISTORY: RT BREAST PAIN, pain along the inferior posterior breast. COMPARISON: None available. TECHNIQUE: Bilateral craniocaudad, mediolateral oblique, and mediolateral views are submitted with to mosynthesis and SM. Spot compression RIGHT MLO. Computer aided detection utilized. Breast composition: There are scattered areas of fibroglandular density. No underlying abnormality is noted in the posterior inferior RIGHT breast near the pain marker site. No suspicious masses or calc ifications. RIGHT breast ultrasound, limited. Ultrasound directed to the area of pain at 8:00, 7 cm from the nipple. No mass or abnormality is iden tified. MM/[place] [id number] IMPRESSION: BI-RADS: 2-Benign FOLLOW UP: 1 Year Follow-up
== END 2022-08-30 08:54 | disposition home or self-care (01) ==
PROVIDERS: PCP Family Medicine; Visit Provider Family Medicine
DX: N64.4 Mastodynia (principal)
CPT/HCPCS: 76642; 77062; G0279

== ENCOUNTER → 2022-12-30 07:57 | Outpatient (BNVA) | payer MEDICAID, SELFPAY | PROVIDERS: PCP Family Medicine; Referring Provider Registered Nurse; Visit Provider Specialist | DX: M21.41 Flat foot [pes planus] (acquired), right foot (principal); M21.42 Flat foot [pes planus] (acquired), left foot; R20.0 Anesthesia of skin; R20.2 Paresthesia of skin | CPT/HCPCS: 95910 ==

== ENCOUNTER → 2023-02-22 11:54 | Outpatient (BNVA) | payer MEDICAID, SELFPAY | PROVIDERS: PCP Family Medicine; Visit Provider Specialist | DX: M54.9 Dorsalgia, unspecified (principal); G89.29 Other chronic pain; E11.9 Type 2 diabetes mellitus without complications; F17.210 Nicotine dependence, cigarettes, uncomplicated | CPT/HCPCS: 99204; 99214; 99215 ==

== ENCOUNTER → 2023-03-22 08:34 | Outpatient (BNVA) | payer MEDICAID, SELFPAY | PROVIDERS: PCP Family Medicine; Referring Provider Family Medicine; Visit Provider Specialist | DX: G62.89 Other specified polyneuropathies (principal); R53.1 Weakness | CPT/HCPCS: 95910 ==

== ENCOUNTER → 2023-05-24 07:58 | Outpatient (BNVA) | payer MEDICAID, SELFPAY | PROVIDERS: PCP Family Medicine; Referring Provider Registered Nurse; Visit Provider Surgery | DX: R22.2 Localized swelling, mass and lump, trunk (principal) | CPT/HCPCS: 99204 ==

== ENCOUNTER 2023-06-27 07:16 | Outpatient (CLI) | payer MEDICAID, SELFPAY ==
--- NOTE | 2023-06-27 08:00 | US_ITS ---
WS: [id number] RIGHT UPPER QUADRANT ULTRASOUND HISTORY: ruq abdominal wall mass COMPARISON: CT abdomen 08/18/2020 Liver: 18.2 cm in length. Moderately enlarged liver with dense echotexture. The entire liver is not v isualized well due to marked attenuation. The liver is very echogenic. No bile duct dilatation. Portal Vein: Normal hepatopetal flow with monophasic waveform. Gallbladder: Prior cholecystectomy. CBD: 0.3 cm Pancreas: Normal size and echogenicity. Right kidney: 11.0 cm in length. Poorly visualized kidney due to body habitus. No hydronephrosis. Mas s would be difficult to exclude. Aorta and IVC: Unremarkable abdominal aorta and IVC. No ascites. No mass identified in the soft tissues of the RIGHT upper quadrant. IMPRESSION: 1. Technically very difficult evaluation of the RIGHT upper quadrant due to body habitus. 2. Moderately enlarged liver with severe hepatic steatosis. Liver is very dense and difficult to pen etrate. 3. Prior cholecystectomy. 4. No RIGHT upper quadrant mass seen.
== END 2023-06-27 07:17 | disposition home or self-care (01) ==
LOC: RAD 07:16
PROVIDERS: PCP Family Medicine; Visit Provider Surgery
DX: M89.8X8 Other specified disorders of bone, other site (principal); R19.01 Right upper quadrant abdominal swelling, mass and lump; K76.0 Fatty (change of) liver, not elsewhere classified; R16.0 Hepatomegaly, not elsewhere classified; Z90.49 Acquired absence of other specified parts of digestive tract
CPT/HCPCS: 76705; 99214

== ENCOUNTER → 2024-01-04 08:29 | Outpatient (BNVA) | payer MEDICAID, SELFPAY | PROVIDERS: PCP Family Medicine; Visit Provider Podiatrist Foot & Ankle Surgery | DX: M25.572 Pain in left ankle and joints of left foot (principal); E11.9 Type 2 diabetes mellitus without complications; Z79.4 Long term (current) use of insulin; S99.912A Unspecified injury of left ankle, initial encounter; S93.402A Sprain of unspecified ligament of left ankle, initial encounter; X58.XXXA Exposure to other specified factors, initial encounter | CPT/HCPCS: 99203 ==

== ENCOUNTER → 2024-01-26 09:31 | Outpatient (BNVA) | payer MEDICAID, SELFPAY | PROVIDERS: PCP Family Medicine; Visit Provider Podiatrist Foot & Ankle Surgery | DX: E11.9 Type 2 diabetes mellitus without complications; Z79.4 Long term (current) use of insulin; S99.912A Unspecified injury of left ankle, initial encounter; S93.402A Sprain of unspecified ligament of left ankle, initial encounter; X58.XXXA Exposure to other specified factors, initial encounter | CPT/HCPCS: 99213 ==

== ENCOUNTER → 2024-02-16 09:22 | Outpatient (BNVA) | payer MEDICAID, SELFPAY | PROVIDERS: PCP Family Medicine; Visit Provider Podiatrist Foot & Ankle Surgery | DX: S93.409A Sprain of unspecified ligament of unspecified ankle, initial encounter (principal); E11.9 Type 2 diabetes mellitus without complications; Z79.4 Long term (current) use of insulin; X58.XXXA Exposure to other specified factors, initial encounter | CPT/HCPCS: 99213 ==

== ENCOUNTER 2024-08-07 11:44 | Outpatient (CLI) | payer MEDICAID, SELFPAY ==
--- NOTE | 2024-08-07 11:49 | ECG_ITS ---
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 Baseline heart rate was 77 beats per minute. Baseline blood pressure was 116/81 millimeters of mercury. Target heart rate was 178 beats per minute. Maximum heart rate achieved was 158, which was 87% of the target heart rate. Maximum blood pressure was 180/104 millimeters of mercury. Total exercise time was 3 minutes. Maximum METs achieved was 4.6, maximum VO2 was 16. The reason for ending the test was maximum effort achieved. The patient complained of shortness of breath during the stress test, which then resolved at the end of the test. ELECTROCARDIOGRAM: BASELINE: Showed sinus rhythm, normal axis, no significant ST-T changes at the baseline noted. EXERCISE: At the peak exercise level, no significant ST-T changes suggestive of ischemia noted. RECOVERY: During the recovery period, heart rate dropped appropriately. No significant ST-T changes in the recovery suggestive of ischemia noted. CONCLUSION: 1. Exercise capacity poor. 2. Heart rate response was tachycardic. 3. Blood pressure response was appropriate. 4. Symptoms not suggestive of ischemia. 5. Electrocardiogram portion of the stress test was not suggestive of ischemia. 6. Nuclear scan will be documented separately. Electronically Signed On 08-28-2024 18:05:25 CDT by LAKEISHA WRIGHT [email or web address]
[2024-08-07 11:52] VITALS: BMI 42.7
[2024-08-07 12:18] VITALS: BP 139/80; PULSE 106
== END 2024-08-07 11:45 | disposition home or self-care (01) ==
PROVIDERS: PCP Family Medicine; Visit Provider Family Medicine
DX: M17.11 Unilateral primary osteoarthritis, right knee (principal); R07.9 Chest pain, unspecified; R93.1 Abnormal findings on diagnostic imaging of heart and coronary circulation; R00.0 Tachycardia, unspecified
CPT/HCPCS: 20610; 73560; 73565; 93017; 99204; J3301; J9999

== ENCOUNTER 2024-08-13 21:35 | Emergency (ER) | payer MEDICAID, SELFPAY ==
[2024-08-13 21:37] VITALS: BP 161/74; PULSE 84; RESP 18; TEMP 36.4; O2SAT 99
--- NOTE | 2024-08-13 21:49 | XRR_ITS ---
PROCEDURE INFORMATION: Exam: XR Chest Exam date and time: 08/13/2024 10:01 PM Age: 43 years old Clinical indication: Other: CVA TECHNIQUE: Imaging protocol: Radiologic exam of the chest. Views: 1 view. COMPARISON: CT abdomen pelvis w con* [id number] 08/18/2020 10:09 PM FINDINGS: Lungs: Expiratory. Bibasilar atelectasis. Pleural spaces: Unremarkable. No pleural effusion. No pneumothorax. Heart/Mediastinum: Unremarkable. No cardiomegaly. Bones/joints: Unremarkable. XR/XR chest 1V portable [id number] IMPRESSION: Expiratory film with bibasilar atelectasis but without significant acute infiltrate.
--- NOTE | 2024-08-13 21:51 | CTR_ITS ---
PROCEDURE INFORMATION: Exam: CT Head Without Contrast Exam date and time: 08/13/2024 9:57 PM Age: 43 years old Clinical indication: Stroke-like symptoms; Speech disturbance; Additional info: Symptoms of acute stroke TECHNIQUE: Imaging protocol: Computed tomography of the head without contrast. Radiation optimization: All CT scans at this facility use at least one of these dose optimization techniques: automated exposure control; mA and/or kV adjustment per patient size (includes targeted exams where dose is matched to clinical indication); or iterative reconstruction. Other technique: STROKE PROTOCOL was implemented. COMPARISON: MR head wo/w con [id number] 02/02/2023 11:31 AM RADIATION DOSE METRICS: Total DLP (mGy-cm): 996.18 FINDINGS: Brain: Normal. No hemorrhage. Unremarkable white matter. No mass effect. Cerebral ventricles: No ventriculomegaly. Paranasal sinuses: Visualized sinuses are unremarkable. No fluid levels. Mastoid air cells: Visualized mastoid air cells are well aerated. Bones: Unremarkable. No acute fracture. Soft tissues: Unremarkable. CT/CT head thrombolytic [id number] IMPRESSION: No acute intracranial abnormality. ASSESSMENT: ASPECTS ([place] Stroke Program Early CT Score) is 10.
--- NOTE | 2024-08-13 21:51 | ECG_ITS ---
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 Measurements Intervals [place] Rate: 78 P: 15 MN: 152 QRS: -9 QRSD: 90 T: 18 QT: 365 QTc: 418 Interpretive Statements SINUS RHYTHM MODERATE VOLTAGE CRITERIA FOR LVH, CONSIDER NORMAL VARIANT [MEETS CRITERIA IN ONE OF: R(aVL), S(V1), R(V5), R(V5/V6)+S(V1)] No previous ECG available for comparison Electronically Signed On 08-14-2024 21:22:18 CDT by Diandra Hernandez M.D. [email or web address]
--- NOTE | 2024-08-13 21:53 | W.ED.WEAKNES ---
HPI - Weakness General: Chief complaint: Weakness Stated complaint: stroke like symptoms Time Seen by Provider: 08/13/24 21:42 Source: patient Mode of arrival: ambulatory Limitations: no limitations History of Present Illness: 43-year-old female who states that since last Tuesday she has been having word finding difficulty along with left-sided weakness and numbness. States she had weakness in her arm and hard time walking her left leg. She seen at [facility] then she denies any worsening improving factors no history of stroke in the past. Associated symptoms: Denies chest pain, chills, fever(s), headache(s), nausea or vomiting Review of Systems Const: Denies: fever(s), chills, body aches or change in appetite Eyes: Denies: blurry vision or eye discomfort ENMT: Denies: throat pain or dental pain Card: Denies: chest pain Resp: Denies: dyspnea GI: Denies: abdominal pain, nausea, vomiting or diarrhea Musc: Denies: neck pain or back pain Skin/Breast: Denies: rash Neuro: Reports: weakness in extremities and Slurred speech present; Denies: headache(s) PFSH ED PFSH: Medical History Leukocytosis Microhematuria Surgical History H/O: hysterectomy History of cholecystectomy History of tubal ligation Family History Father Diabetes Hyperlipidemia Grandmother Diabetes Hypertension Stroke Sister Hypertension Brother Heart disease Social History Smoking and tobacco/nicotine status: current every day tobacco/nicotine user cigarettes Packs smoked per day: 0.5 Alcohol intake: never Substance/Drug Use: never Lives independently: No Household members: children Marital status: Life Partner Current occupational status: unemployed Current gender identity: Female Physical Exam Const: COMMON NORMALS: no acute distress, patient oriented x3 and healthy appearing HENMT: COMMON NORMALS: normocephalic and atraumatic HEAD & SCALP: normocephalic and atraumatic Eye: COMMON NORMALS: Equal, round and reactive pupils present and EOMs intact bilaterally PUPIL: Yes Equal, round and reactive pupils present Neck/C-Spine: COMMON NORMALS: full ROM and supple Chest: COMMONS NORMALS: normal inspection of the chest Resp: COMMON NORMALS: normal respiratory effort, No retractions, No use of accessory muscles and clear to auscultation bilaterally AUSCULTATION: clear to auscultation bilaterally Cardio: COMMON NORMALS: regular rate, regular rhythm and No murmurs present (Cardio) RATE: regular rate RHYTHM: regular rhythm Extremity: COMMON NORMALS: normal to inspection and full ROM Neuro: COMMON NORMALS: patient oriented x3, moves all extremities and no focal motor deficits CRANIAL NERVES: Yes CN normal except as noted OTHER: slight decreased sensation to left arm and leg Psych: COMMON NORMALS: mental status grossly normal, Normal thought process present and cooperative THOUGHT PROCESS: Normal thought process present Skin: COMMON NORMALS: no rashes or lesions noted and no wounds GENERAL SKIN EXAM: no rashes or lesions noted Course Vital Signs: Vital signs: Vital Signs Temperature 97.5 F L 08/13/24 21:37 Pulse Rate 74 08/13/24 23:00 Respiratory Rate 20 H 08/13/24 23:00 Blood Pressure 127/86 08/13/24 23:00 Pulse Oximetry 94 08/13/24 23:00 MDM - Weakness Medical Decision Making Patient presents for some paresthesias to her left side no obvious severe weakness she is able ambulate here no slurred speech here she has seen her PCP has an MRI scheduled in early August did speak to her about admission she is already on a statin aspirin and wants to follow-up with her PCP and get the MRI outpatient she is well-appearing her symptoms been since Tuesday stable for discharge Medical Records I reviewed the patient's medical records. Lab Data I reviewed the patient's lab results. 08/13/24 22:16 08/13/24 22:16 Radiology Impressions Chest X-Ray 08/13/24 21:49 IMPRESSION: Expiratory film with bibasilar atelectasis but without significant acute infiltrate. Head CT 08/13/24 21:51 IMPRESSION: No acute intracranial abnormality. ASSESSMENT: ASPECTS ([place] Stroke Program Early CT Score) is 10. ADDENDUM: 08/13/24 2225 d/w Dr. Matute 922 PM RUST. Laboratory Results WBC 16.00 10^3/uL (3.29-11.43) H 08/13/24 22:16 RBC 5.02 10^6/uL (3.85-5.65) 08/13/24 22:16 Hgb 14.50 g/dL (11.27-16.99) 08/13/24 22:16 Hct 43.7 % (36-47) 08/13/24 22:16 MCV 87.1 fl (85-98) 08/13/24 22:16 MCH 28.9 pg (27-33) 08/13/24 22:16 MCHC 33.2 g/dL (30-55) 08/13/24 22:16 RDW 13.8 % (12.1-15.1) 08/13/24 22:16 Plt Count 446 10^3/cmm (157-399) H 08/13/24 22:16 MPV 9.9 fL (7.4-10.4) 08/13/24 22:16 Neut % (Auto) 73.7 % 08/13/24 22:16 Lymph % (Auto) 19.1 % 08/13/24 22:16 Cooke % (Auto) 4.1 % 08/13/24 22:16 Eos % (Auto) 1.9 % 08/13/24 22:16 Baso % (Auto) 0.8 % 08/13/24 22:16 Neut # (Auto) 11.80 10^3/uL (1.8-7.7) H 08/13/24 22:16 Lymph # (Auto) 3.1 10^3/uL (0.8-4.8) 08/13/24 22:16 Cooke # (Auto) 0.7 10^3/uL (0.2-0.9) 08/13/24 22:16 Eos # (Auto) 0.3 10^3/uL (0.0-0.8) 08/13/24 22:16 Baso # (Auto) 0.1 10^3/uL (0.0-0.1) 08/13/24 22:16 Nucleated RBC % (auto) 0 % 08/13/24 22:16 Nucleated RBCs # 0.0 /100WBC 08/13/24 22:16 PT 12.40 SECONDS (12.1-14.9) 08/13/24 22:16 INR 0.87 (0.8-1.2) 08/13/24 22:16 APTT 27.7 SECONDS (23.9-36.7) 08/13/24 22:16 Sodium 137 mmol/L (136-145) 08/13/24 22:16 Potassium 4.1 mmol/L (3.5-5.1) 08/13/24 22:16 Chloride 101 mmol/L (98-107) 08/13/24 22:16 Carbon Dioxide 22 mmol/L (22-29) 08/13/24 22:16 Anion Gap 18.1 (5-19) 08/13/24 22:16 BUN 8 mg/dL (6-20) 08/13/24 22:16 Creatinine 0.5 mg/dL (0.5-0.9) 08/13/24 22:16 GFR Calculation 135.3 mL/min (90-130) H 08/13/24 22:16 Glucose 237 mg/dL (65-115) H 08/13/24 22:16 POC Glucose 229 mg/dL (70-110) H 08/13/24 22:12 Calculated Osmolality 290 mOsm/kg (285-295) 08/13/24 22:16 Calcium 8.8 mg/dL (8.5-10.5) 08/13/24 22:16 Total Bilirubin 0.3 mg/dL (0.15-1.2) 08/13/24 22:16 AST 22 U/L (0-32) 08/13/24 22:16 ALT 27 U/L (0-33) 08/13/24 22:16 Alkaline Phosphatase 118 U/L (35-105) H 08/13/24 22:16 Total Protein 7.1 g/dL (6.6-8.7) 08/13/24 22:16 Albumin 4.1 g/dL (3.5-5.2) 08/13/24 22:16 Globulin 3.0 g/dL (1.3-4.6) 08/13/24 22:16 Amorphous Sediment Not Reportable 08/13/24 22:50 All radiology interpretation(s) finalized by discharge EKG Data EKG 1: I personally reviewed and interpreted this EKG as follows: EKG interpretation date: 08/13/24 EKG interpretation time: 22:35 Interpretation: nsr hr [address] elevation qrs 90 qtc 399 Discharge Plan Discharge Patient Disposition: Home Clinical Impression: Paresthesia Condition: Stable Prescriptions: No Action albuterol sulfate [ProAir HFA] 90 mcg/actuation HFA aerosol inhaler 2 puff INHALATION Q6H PRN (Reason: Shortness Of Breath) methocarbamol 750 mg tablet 750 mg PO TID Trulicity 0.75 mg/0.5 mL pen injector SUBCUT meloxicam 15 mg tablet 15 mg PO DAILY cetirizine 10 mg capsule 10 mg PO DAILY rosuvastatin 40 mg tablet 40 mg PO DAILY lisinopril 20 mg tablet 20 mg PO DAILY (DME) right knee economy hinged brace See Rx Instructions .Route .MEDSUPPLY Qty: 1 0RF Rx Instructions: As directed cyclobenzaprine 10 mg tablet 10 mg PO TID PRN (Reason: muscle spasm) Qty: 30 0RF nitroglycerin 0.4 mg tablet, sublingual See Rx Instructions .ROUTE .COMPLEX Qty: 25 3RF Dose Instruction: PLACE 1 TABLET UNDER THE TONGUE EVERY 5 MINUTES NEEDED FOR CHEST PAIN. DO NOT EXCEED 3 DOSES PER EPISODE Rx Instructions: PLACE 1 TABLET UNDER THE TONGUE EVERY 5 MINUTES NEEDED FOR CHEST PAIN. DO NOT EXCEED 3 DOSES PER EPISODE (DME) ASO to left See Rx Instructions .Route .MEDSUPPLY Qty: 1 0RF Rx Instructions: As directed by HOME *Length of need 42498 days ergocalciferol (vitamin D2) 50,000 unit capsule 50,000 unit PO Q7D Symbicort 160-4.5 mcg/actuation Hfa Aerosol Inhaler 2 puff INHALATION BID Discharge Orders: Discharge ED (Routine); Ordered 08/13/24 Ordered By: Nicolasa Matute Referrals: Leo Newman [Primary Care Provider] - 4-7 days Discharge Diet: Advance as tolerated Discharge Activity: Resume usual activity Patient Instructions: Paresthesia (ED) Print Language: Iraqi Coding Level of Care Code ED 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 for Chg Fwd Related Data Home Medications ?Medication ?Instructions ?Recorded ?Confirmed albuterol sulfate 90 mcg/actuation 2 puff inhalation Q6H PRN 04/20/19 08/07/24 aerosol inhaler (ProAir HFA) Shortness Of Breath budesonide-formoterol HFA 160 2 puff inhalation BID 05/02/19 08/07/24 mcg-4.5 mcg/actuation aerosol inhaler (Symbicort) ergocalciferol (vitamin D2) 1,250 50,000 unit PO Q7D 05/02/19 08/07/24 mcg (50,000 unit) capsule cetirizine 10 mg capsule 10 mg PO DAILY 10/18/19 08/07/24 meloxicam 15 mg tablet 15 mg PO DAILY 10/18/19 08/07/24 dulaglutide 0.75 mg/0.5 mL SUBCUT 02/04/20 08/07/24 subcutaneous pen injector (Trulicity) methocarbamol 750 mg tablet 750 mg PO TID 02/04/20 08/07/24 lisinopril 20 mg tablet 20 mg PO DAILY 09/16/21 08/07/24 rosuvastatin 40 mg tablet 40 mg PO DAILY 09/16/21 08/07/24 Previous Rx's ?Medication ?Instructions ?Recorded nitroglycerin 0.4 mg sublingual See Rx Instructions .Route 02/17/20 tablet .COMPLEX #25 tabs cyclobenzaprine 10 mg tablet 10 mg PO TID PRN muscle spasm #30 08/26/22 tabs ASO to left #1 ea 01/11/24 right knee economy hinged brace #1 ea 08/07/24 Allergies Allergy/AdvReac Type Severity Reaction Status Date / Time adhesive tape Allergy Rash Verified 08/13/24 21:45 gabapentin Allergy Hives Verified 08/13/24 21:45 oseltamivir (From Tamiflu) Allergy ALGY-Wheezi Verified 08/13/24 21:45 ng exenatide (From Bydureon) AdvReac ADR-Headach Verified 08/13/24 21:45 e metformin AdvReac ADR-Nausea Verified 08/13/24 21:45 NIH stroke score NIHSS Level Of Consciousness - 1a: 0 Level Of Consciousness Questions - 1b: Both Correct Level Of Consciousness Commands - 1c: Both Correct Best Gaze - 2: Normal Visual Gonzalez - 3: No Visual Loss Facial Palsy - 4: Normal Motor Arm Right - 5: No Drift Motor Arm Left - 5: No Drift Motor Leg Right - 6: No Drift Motor Leg Left - 6: No Drift Limb Ataxia - 7: Absent Sensory - 8: Mild To Moderate Loss Best Language - 9: No Aphasia Dysarthia - 10: Normal Extinction And Inattention - 11: 0 Score Total Score: 1
[2024-08-13 22:14] VITALS: PULSE 78; RESP 19; O2SAT 95
[2024-08-13 22:15] LABS: Glucose Point of Care 229 mg/dL (70-110)
[2024-08-13 22:25] LABS: Basophils # 0.1 10^3/uL (0.0-0.1); Basophils % 0.8 %; Eosinophils # 0.3 10^3/uL (0.0-0.8); Eosinophils % 1.9 %; Hematocrit 43.7 % (36-47); Lymphocytes # 3.1 10^3/uL (0.8-4.8); Lymphocytes % 19.1 %; Mean Corpuscular HGB Conc 33.2 g/dL (30-55); Mean Corpuscular Hemoglobin 28.9 pg (27-33); Mean Corpuscular Volume 87.1 fl (85-98); Mean Platelet Volume 9.9 fL (7.4-10.4); Monocytes # 0.7 10^3/uL (0.2-0.9); Monocytes % 4.1 %; Neutrophils % 73.7 %; Nucleated Red Blood Cells % 0 %; Platelet Count 446 10^3/cmm (157-399); Red Blood Count 5.02 10^6/uL (3.85-5.65); Red Cell Distribution Width 13.8 % (12.1-15.1)
[2024-08-13 22:34] LABS: INR 0.87 (0.8-1.2)
[2024-08-13 22:35] LABS: Partial Thromboplastin Time 27.7 SECONDS (23.9-36.7)
[2024-08-13 22:42] LABS: Alanine Aminotransferase 27 U/L (0-33); Albumin Level 4.1 g/dL (3.5-5.2); Alkaline Phosphatase 118 U/L (35-105); Anion Gap 18.1 (5-19); Aspartate Amino Transferase 22 U/L (0-32); Blood Urea Nitrogen 8 mg/dL (6-20); Calcium 8.8 mg/dL (8.5-10.5); Carbon Dioxide 22 mmol/L (22-29); Chloride 101 mmol/L (98-107); Creatinine Clr Calc Pharmacy 193.1616; Glomerular Filtration Rate 135.3 mL/min (90-130); Glucose 237 mg/dL (65-115); Osmolality Calculated 290 mOsm/kg (285-295); Potassium 4.1 mmol/L (3.5-5.1); Sodium 137 mmol/L (136-145); Total Bilirubin 0.3 mg/dL (0.15-1.2); Total Protein 7.1 g/dL (6.6-8.7)
[2024-08-13 23:00] VITALS: BP 127/86; PULSE 74; RESP 20; O2SAT 94
[2024-08-13 23:28] VITALS: BP 127/86; PULSE 78; O2SAT 74
[2024-08-13 23:33] LABS: Bilirubin Urine Negative (Negative); Blood Urine 1+ (Negative); Glucose Urine UA 2+ (Normal); Ketones Urine Negative (Negative); Leukocyte Esterase Urine Negative (Negative); Nitrate Urine Negative (Negative); Protein Urine Negative (Negative); Specific Gravity, Urine 1.017 (1.005-1.030); Urine Appearance Clear (CLEAR); Urine Color Yellow (Yellow); Urobilinogen Urine 0.2 mg/dL (Negative); pH Urine 5.5 (5-7)
[2024-08-13 23:37] LABS: Add Urine Microscopic? YES; Bacteria Urine None Seen /hpf; Hyaline Casts Urine 0-4 /lpf; RBC Urine 0-2 /hpf (0-2); Squamous Epithelial Cell Urine 0-5 /hpf (0-5); WBC Urine 0-5 /hpf (0-5)
[2024-08-13 23:40] LABS: Amphetamines Screen Urine Negative (Negative); Barbiturates Screen Urine Negative (Negative); Benzodiazepines Screen Urine Negative (Negative); Cocaine Screen Urine Negative (Negative); Opiate Screen Urine Positive (Negative); PCP Screen Urine Negative (Negative); THC Screen Urine Negative (Negative)
== END 2024-08-13 23:31 | disposition home or self-care (01) ==
PROVIDERS: Emergency Provider Emergency Medicine; PCP Family Medicine
DX: R20.2 Paresthesia of skin (principal); F17.210 Nicotine dependence, cigarettes, uncomplicated
CPT/HCPCS: 36415; 36416; 70450; 71045; 80053; 80306; 81001; 82962; 85025; 85610; 85730; 93005; 99285

== ENCOUNTER → 2024-10-01 13:12 | Outpatient (BNVA) | payer MEDICAID, SELFPAY | PROVIDERS: PCP Family Medicine; Visit Provider Internal Medicine Cardiovascular Disease | DX: R07.89 Other chest pain (principal); I10 Essential (primary) hypertension; E78.5 Hyperlipidemia, unspecified; Z79.02 Long term (current) use of antithrombotics/antiplatelets; F17.210 Nicotine dependence, cigarettes, uncomplicated | CPT/HCPCS: 99204 ==

== ENCOUNTER → 2024-10-04 07:30 | Outpatient (BNVA) | payer MEDICAID, SELFPAY | PROVIDERS: PCP Family Medicine; Referring Provider Nurse Practitioner Family; Visit Provider Psychiatry & Neurology Neurology | DX: R20.0 Anesthesia of skin (principal); R20.2 Paresthesia of skin | CPT/HCPCS: 95913 ==

== ENCOUNTER → 2024-10-30 08:45 | Outpatient (BNVA) | payer MEDICAID, SELFPAY | PROVIDERS: PCP Family Medicine; Visit Provider Nurse Practitioner Family | DX: R07.9 Chest pain, unspecified (principal); I10 Essential (primary) hypertension; E78.5 Hyperlipidemia, unspecified; Z79.02 Long term (current) use of antithrombotics/antiplatelets; F17.210 Nicotine dependence, cigarettes, uncomplicated; Z86.73 Personal history of transient ischemic attack (TIA), and cerebral infarction without residual deficits | CPT/HCPCS: 99214 ==

== ENCOUNTER 2024-11-06 09:11 | Outpatient (CLI) | payer MEDICAID, SELFPAY ==
[2024-11-06 09:37] LABS: Hematocrit 42.0 % (36-47); Hemoglobin 14.00 g/dL (11.27-16.99); Mean Corpuscular HGB Conc 33.3 g/dL (30-55); Mean Corpuscular Hemoglobin 29.1 pg (27-33); Mean Corpuscular Volume 87.3 fl (85-98); Nucleated Red Blood Cells % 0 %; Platelet Count 310 10^3/cmm (157-399); Red Blood Count 4.81 10^6/uL (3.85-5.65); White Blood Count 8.15 10^3/uL (3.29-11.43)
[2024-11-06 09:57] LABS: INR 0.87 (0.83-1.21)
[2024-11-06 10:00] LABS: Anion Gap 15.3 (5-19); Blood Urea Nitrogen 6 mg/dL (6-20); Calcium 9.0 mg/dL (8.5-10.5); Carbon Dioxide 24 mmol/L (22-29); Chloride 102 mmol/L (98-107); Glucose 99 mg/dL (65-115); Osmolality Calculated 282 mOsm/kg (285-295); Potassium 4.3 mmol/L (3.5-5.1); Sodium 137 mmol/L (136-145)
== END 2024-11-06 09:12 | disposition home or self-care (01) ==
LOC: LAB 09:15
PROVIDERS: PCP Family Medicine; Visit Provider Nurse Practitioner Family
DX: I10 Essential (primary) hypertension (principal); R07.9 Chest pain, unspecified; R58 Hemorrhage, not elsewhere classified
CPT/HCPCS: 36415; 80048; 85025; 85610

== ENCOUNTER 2024-11-12 07:00 | Outpatient (CLI) | payer MEDICAID, SELFPAY ==
[2024-11-12] VITALS (22 sets, daily range): BP systolic 111–156; BP diastolic 75–98; PULSE 58–95; RESP 14–25; TEMP 36.7; O2SAT 93–97; BMI 39.1
--- NOTE | 2024-11-12 08:14 | P.HPUD_ITS ---
Surgery/Procedure H&P Update DATE OF PROCEDURE: November 12, 2024 DATE H&P PERFORMED: 10/30/24 CHANGES TO PREVIOUS DOCUMENTATION: Find unexplained shortness of breath with worsening of chest pain despite of optimization of medicine including beta-starr and isosorbide mononitrate. Patient has risk factor for coronary artery disease including continuous tobacco abuse diabetes hypertension. Since she continues to have chest pain and using nitroglycerin regularly today she was brought in for left heart catheterization. PREOP DIAGNOSIS: Chest pain suspicious for unstable angina PLANNED PROCEDURE: Operation Date: 11/12/24 08:30 Proposed Procedures p Cardiac Catheterization - [facility] w/wo LV & Coros(Left) - Lauren Frye MD PATIENT REASSESSED PRIOR TO SEDATION, WITH NO CHANGE NOTED: Yes PHYSICAL EXAM: alert, oriented x 3, clear to auscultation bilaterally, regular rate & rhythm and operative site marked AIRWAY EVAL/ANESTHESIA PLAN: ASA II, Risks, benefits & alternatives of sedation and/or procedure discussed and Patient agrees to continue as planned ADDITIONAL INFORMATION: All risk-benefit and alternative for the procedure has been explained to the patient. Patient understand 2% risk of stroke major bleed. Patient understand 5% risk of minor bleeding oozing infection hematoma pseudoaneurysm urgent and urgent vascular bypass surgery along with contrast-induced nephropathy. Patient agrees to it and would like to proceed with it.
--- NOTE | 2024-11-12 08:30 | XACV_ITS ---
Exam Room: 2 Ht: 170 cm Wt: 113 kg BSA: 2.37 m2 Gender: Female : 1980 Any Known Allergies: Other Exam Priority: Routine Procedure(s): Procedure Description: Diagnostic procedure Procedure Description: Left Heart Catheterization Procedure Description: Left ventriculography Procedure Description: Miscellaneous Procedure Description: Angio-Seal Procedure Description: Coronary Angiography Uday SÁNCHEZ; Diagnostic Cath Status: Elective Diagnostic Findings * Left Main has no disease. * Left Anterior Descending has no disease. * Circumflex has no disease. * Mid Right Coronary Artery: mild 40% stenosis, SHANEKA: 3 flow. * Coronary angiography shows left dominance. Conclusions 1. There is mild coronary artery disease with one vessel disease. 2. All hirsch are normal. 3. Normal left ventricular systolic function. Ejection fraction of 65%. Recommendations * 1-Return to inpatient for close monitoring and routine cath care 2-Risk factor modification for secondary prevention 3-Statin and aspirin 81 mg life-long, if tolerated 4-advise quitting smoking, risk factor modification losing weight controlling blood sugar and blood pressure 5-Continue optimal medical management 6-Follow up with Dr. Frye as already scheduled and your primary care in 10 days. Diagnostic RX Recommendation: medical therapy and/or counseling Ventriculography Ejection Fraction: 65.0 % Left Ventriculography Findings: * 4. Pressures Phase:Rest AO : 111 / 66 ( 86 ) @ 9:47:00 AM 114 / 66 ( 87 ) @ 9:51:00 AM 123 / 63 ( 88 ) @ 10:03:00 AM 123 / 63 ( 88 ) @ 10:03:00 AM LV : 121 / -14 / 8 @ 10:02:00 AM 122 / -10 / 10 @ 10:03:00 AM 124 / -10 / 10 @ 10:03:00 AM Valves Phase:DefaultPhase AV : 3.0 @ 9:13:15 AM AV Mean Gradient: 9.0 @ 9:13:15 AM Clinical Evaluation EBL: 5mL-10mL Procedural Details Procedure Consent Obtained. Pre-Procedure Time Out. Identified patient by full name and date of as verbalized by the patient/guarantor. Does the consent match the physician's order: Yes. Accurate & Complete Informed Consent: Yes. Inpatient/Outpatient History & Physical on Chart: Yes. If H&P is completed, is and addenduem needed: No. Visualize and Verify Site with Patient/Guarantor: N/A. Relevant Radiology Images available: Yes. The risks, benefits, and alternatives of sedation and/or procedure were discussed by physician. The patient agrees to continue. Procedure started. [facility] Clinical Fraility Score: 3: Managing Well. Larry Operator Indications: New Onset Angina. Chest Pain Symptom Assessment: Typical Angina Symptoms. Cardiovascular Instability: No. Correct patient, site and procedure confirmed by cath team. PERRLA. Strong, equal hand surveyor chain helper bilaterally. Lungs clear x 5 lobes. IV Site on Arrival: 20 gauge in the left anticubital. IV Fluids: 0.9% NaCl at KVO. 0 mL infused prior to mason tender restoration labor. Pre Procedural Pulses: bilateral posterior tibial was 2+. Pre Procedural Pulses: bilateral dorsalis pedis was 1+. Pre Procedural Pulses: bilateral radial was 1+. Oxygen started at 2liters/min via nasal canula. right groin was prepped with chloroprep then draped in the usual sterile fashion. right radial was prepped with chloroprep then draped in the usual sterile fashion. Physician notified. Baseline sample Acquired. HR: 63 BPM. Patient's family in CPRU room #3. Dr. Frye will update at the completion of the procedure. Equipment: 6F - Radial. Cardiac Cath Pack. ACIST Manifold Kit Model BT 2000. Heparinized Saline (2 units/mL), 1000 mL bag. Physician arrived. Physician scrubbed in. Immediate Pre-Procedure Time Out. Correct Patient: Yes; Correct Procedure: Yes; Correct Site: Yes; Correct Patient Position: Yes; Correct Supplies: Yes; Dried Flammable Prep: Yes; Blood Products Available: N/A;. Lidocaine 1% infiltrated to the right radial. Arterial access obtained. A 5 tristanian Milton catheter in over the exchange J wire. Exchange wire out. Hanfd injection of the radial artery performed through the catheter. Unable to advance catheter. Aborting radial access. Will mve to femoral access. A TR Band was successful obtaining hemostatsis at the Right Radial artery insertion site. Lidocaine 1% infiltrated to the right groin. Arterial access obtained with micropuncture set. A 5 tristanian JL4 catheter in over the exchange J wire. Multiple views taken of left coronary artery. Catheter removed over the exchange J wire. A 5 tristanian JR4 catheter in over the exchange J wire. Catheter removed over the exchange J wire. A 5 tristanian 3DRC catheter in over the exchange J wire. Catheter removed over the exchange J wire. A 5 tristanian Angled Pig catheter in over the exchange J wire. EDP Sample taken: LV 121/-15,8; HR: 62 BPM; SpO2: 98%. LV gram performed in SHER[place]AN @ 10 mL/second for a total of 30 mL. EDP Sample taken: LV 122/-11,10; HR: 62 BPM; SpO2: 98%. Pullback taken: LV 124/-11,10; AO 123/63(88); Mean: 9mmHg, Peak to Peak: 3mmHg, SEP: 17sec/min; HR: 60 BPM; SpO2: 98%. Catheter removed over the exchange J wire. A Right femoral angiogram was performed to determine safe placement of closure device. Lidocaine 1% infiltrated to the right groin. A Angio-Seal VIP (St. All) was successful obtaining hemostatsis at the Right Femoral artery insertion site. Angioseal placed without complications. No signs or symptoms of hematoma noted. Sterile dressing applied per usual sterile fashion. Lot # [id number]. Exp. . Post Procedure: Pulses reassessed and unchanged. PERRLA. Strong, equal hand surveyor chain helper bilaterally. No VTE prophylaxis required. Medication's Wasted: Lidocaine 1% = 10 mL. Medication's Wasted: Nitro = 49.5 mg. Medication's Wasted: Heparin = 6000 Units. Total IV fluids: 75 mL. Post-op diagnosis: non-obstructive CAD. Complications: none. Estimated blood loss: 5mL-10mL. Responsiveness - Normal response to verbal stimuli; alert and oriented, PERRLA. Airway - Unaffected, no intervention required; spontaneous ventilation. Circulation: W/N/L, pulses unchanged. Nausea/Vomiting: No. Dr. Frye scrubbed out. Procedure completed. Patient transferred by stretcher to CPRU. Vital chart was stopped. Access Site Site: Right Radial artery Sheath Size: 6 Fr Hemostasis Method: TR Band Hemostasis Success: Successful Site: Right Femoral artery Sheath Size: 6 Fr Hemostasis Method: Angio-Seal VIP (St. All) Hemostasis Success: Successful Procedure Medications Start: 8:03 AM Stop: 8:03 AM Medication: Versed Amount: 1 mg Route: I.V. Start: 8:03 AM Stop: 8:03 AM Medication: Fentanyl Amount: 50 mcg Route: I.V. Start: 8:22 AM Stop: 8:22 AM Medication: Versed Amount: 1 mg Route: I.V. Start: 8:22 AM Stop: 8:22 AM Medication: Fentanyl Amount: 50 mcg Route: I.V. Start: 8:24 AM Stop: 8:24 AM Medication: Versed Amount: 1 mg Route: I.V. Start: 8:27 AM Stop: 8:27 AM Medication: Nitrogylcerin Amount: 100 mcg Route: S.Q. Start: 8:29 AM Stop: 8:29 AM Medication: Nitrogylcerin Amount: 200 mcg Route: I.A. Start: 8:34 AM Stop: 8:34 AM Medication: Nitrogylcerin Amount: 200 mcg Route: I.A. Start: 8:56 AM Stop: 8:56 AM Medication: Versed Amount: 1 mg Route: I.V. I, the attending physician, have reviewed and verified all procedure medications. Yes, all medications given per verbal order History/Risk Factors Hypertension: Yes Dyslipidemia: Yes Peripheral Arterial Disease (PAD): No Myocardial Infarction (VT): No Obesity: Yes Renal Disease: No Tobacco Use: Current/Recent(w/in 1 year) Prior Interventions PCI: No CABG: No Valve Surgery: No Report Signatures Finalized by Lauren Frye MD on 11/12/2024 09:29 AM
--- NOTE | 2024-11-12 13:15 | PC.NURSE ---
Ambulation 4 hr bedrest period up. Pt ambulated to restroom independently. Right groin access site is asymptomatic. No hematoma, bleeding. Dressing is clean dry and intact. Band aid to right radial site clean/dry. No hematoma or bleeding.
== END 2024-11-12 14:16 | disposition home or self-care (01) ==
PROVIDERS: PCP Family Medicine; Visit Provider Internal Medicine Cardiovascular Disease
DX: I25.10 Atherosclerotic heart disease of native coronary artery without angina pectoris (principal); I10 Essential (primary) hypertension; E78.5 Hyperlipidemia, unspecified; E66.9 Obesity, unspecified; Z68.39 Body mass index [BMI] 39.0-39.9, adult; Z82.49 Family history of ischemic heart disease and other diseases of the circulatory system; E11.9 Type 2 diabetes mellitus without complications; K21.9 Gastro-esophageal reflux disease without esophagitis; R31.29 Other microscopic hematuria; F17.210 Nicotine dependence, cigarettes, uncomplicated; Z83.3 Family history of diabetes mellitus; Z86.73 Personal history of transient ischemic attack (TIA), and cerebral infarction without residual deficits
CPT/HCPCS: 36415; 93458; 99152; 99153; C1760; C1769; C1887; C1894; G0269; J1644; J2250; J3010; J3490; J7030; J9999; Q0163; Q9967

== ENCOUNTER → 2024-11-14 12:28 | Outpatient (BNVA) | payer MEDICAID, SELFPAY | PROVIDERS: PCP Family Medicine; Visit Provider Student in an Organized Health Care Education/Training Program | DX: M17.11 Unilateral primary osteoarthritis, right knee (principal) | CPT/HCPCS: 99213 ==

== ENCOUNTER 2024-11-29 08:34 | Outpatient (CLI) | payer MEDICAID, SELFPAY ==
--- NOTE | 2024-11-29 09:15 | USCV_ITS ---
Ruthann Jacobo Age: 44 Gender: F : 1980 Exam Date: 11/29/2024 09:25 Ordering Phys: Dasha Barr NP Technologist: JANELLE [place] [facility] [place]: SoB BP: 100 / 60 HR: 56 Rhythm: Sinus Technical Quality: Adequate MEASUREMENTS (Male / Female) Normal Values 2D ECHO LV Diastolic Diameter PLAX 5.5 cm 4.2 - 5.9 / 3.9 - 5.3 cm IVS Diastolic Thickness 1.0 cm 0.6 - 1.0 / 0.6 - 0.9 cm IVS Systolic Thickness 1.4 cm LVPW Diastolic Thickness 1.5 cm 0.6 - 1.0 / 0.6 - 0.9 cm LVPW Systolic Thickness 1.7 cm LVOT Diameter 2.1 cm LV Ejection Fraction 2D Teich 60.4 % LV Ejection Fraction MOD 4C 57.8 % LV Ejection Fraction MOD 2C 56.3 % LV Ejection Fraction 2C AL 57.2 % LA Diameter 3.4 cm RA Systolic Volume 4C AL 34.8 ml RA Systolic Volume 4C MOD 32.6 ml LA Sys Volume AL 51.8 cm cubed LA Sys Volume Index AL 22.1 cm cubed/m squared Aorta at Sinotubular Diameter 2.7 cm M-MODE LA Ao Ratio MM 1.4 AV Cusp Separation MM 1.8 cm DOPPLER AV Peak Velocity 120.0 cm/s LVOT Peak Velocity 75.0 cm/s AV Area Cont Eq vti 2.1 cm squared AV Area Cont Eq pk 2.1 cm squared MV Peak Velocity 75.0 cm/s MV Area PHT 4.8 cm squared Mitral E to A Ratio 1.0 TV Peak Velocity 204.5 cm/s TR Peak Velocity 318.0 cm/s TR Peak Gradient 40.4 mmHg TV Peak E Velocity 79.0 cm/s PV Peak Velocity 64.0 cm/s FINDINGS Left Ventricle Normal left ventricular size and systolic function, EF 56%. No regional wall motion abnormalities. Right Ventricle Normal right ventricular size and systolic function. Right Atrium The right atrium is normal in size. Left Atrium The left atrium is normal in size. Mitral Valve No gross abnormalities noted Aortic Valve No gross abnormalities noted Tricuspid Valve Trace tricuspid valve regurgitation. Pulmonic Valve No gross abnormalities noted Pericardium Normal pericardium without effusion. Aorta Normal aortic annulus size. IVC Inferior vena cava not visualized. CONCLUSIONS Normal left ventricular size and systolic function, EF 56%. No regional wall motion abnormalities. Normal cardiac chamber sizes Trace tricuspid valve regurgitation. There is no pericardial effusion. There are no intracardiac masses. No similar previous studies are available for comparison Dr Diandra Hernandez MD FACC (Electronically Signed) Final Date: 02 December 2024 21:26 S
--- NOTE | 2024-11-29 10:15 | MR_ITS ---
WS: [id number] MRI RIGHT KNEE NONCONTRAST TECHNIQUE: Axial PD, coronal PD fat sat, coronal PD, sagittal PD, and sagittal PD fat-sat images obtained. CLINICAL INFORMATION: pain in right knee COMPARISON: Radiograph 08/07/2024 FINDINGS: Distal quadriceps and patella tendons are intact. Normal ACL and PCL. Medial and lateral meniscus appear intact. No acute appearing meniscal tears. Normal bone marrow signal in the femoral condyles and tibial plateau. Mild chondromalacia patella. Medial and lateral patellar retinaculum appear intact. Normal popliteal fossa. Grade 1 injury lateral collateral ligament with a small amount of fluid and edema along the distal deep fibers at the fibula head. Small amount of fluid and edema along the anterior ligament of the fibula head which appears intact. Recommend correlation for lateral compartment injury. Biceps femoris appears intact. Normal medial and collateral ligament. Normal popliteus. No evidence of bone marrow contusion. Fibular head appears normal. No other acute findings. MR/MR knee RT wo con* [id number] IMPRESSION: 1. Normal ACL and PCL. 2. Medial and lateral meniscus appear intact. No acute appearing meniscal tear s. 3. Small amount of fluid and edema deep to the distal lateral collateral ligam ent and along the anterior ligament of the fibula head. Recommend correlation f or LCL injury. No edema in the fibular head. 4. Mild chondromalacia patella. 5. Normal medial collateral ligament. 6. No other acute findings. Outbridge grading: grade II: blister-like swelling/fraying of articular cartila ge extending to surface
== END 2024-11-29 08:35 | disposition home or self-care (01) ==
LOC: RAD 08:35
PROVIDERS: PCP Family Medicine; Visit Provider Nurse Practitioner Family
DX: R07.9 Chest pain, unspecified (principal); R06.02 Shortness of breath; I36.1 Nonrheumatic tricuspid (valve) insufficiency; S83.421A Sprain of lateral collateral ligament of right knee, initial encounter; X58.XXXA Exposure to other specified factors, initial encounter
CPT/HCPCS: 73721; 93306

== ENCOUNTER → 2024-12-05 10:19 | Outpatient (BNVA) | payer MEDICAID, SELFPAY | PROVIDERS: PCP Family Medicine; Visit Provider Student in an Organized Health Care Education/Training Program | DX: M25.561 Pain in right knee (principal); S83.421A Sprain of lateral collateral ligament of right knee, initial encounter; W19.XXXA Unspecified fall, initial encounter; Z01.89 Encounter for other specified special examinations | CPT/HCPCS: 73560; 73565; 99213 ==

== ENCOUNTER → 2024-12-19 07:21 | Outpatient (BNVA) | payer MEDICAID, SELFPAY | PROVIDERS: PCP Family Medicine; Visit Provider Physician Assistant | DX: G56.03 Carpal tunnel syndrome, bilateral upper limbs (principal); G56.23 Lesion of ulnar nerve, bilateral upper limbs | CPT/HCPCS: 99214 ==

== ENCOUNTER 2025-01-17 05:28 | Day surgery (SDC) | payer MEDICAID, SELFPAY ==
[2025-01-17] VITALS (9 sets, daily range): BP systolic 115–136; BP diastolic 76–94; PULSE 53–83; RESP 17–20; TEMP 36.6–36.7; O2SAT 93–100; BMI 37.5
[2025-01-17] MEDS: acetaminophen 1,000 MG/100 ML PIGGYBACK 400 MG IV (06:23)
--- NOTE | 2025-01-17 06:44 | ANES.PREANE2 ---
Pre-Anesthetic Assessment Height/Weight: Height 1.7 m Weight 108.862 kg O2 Del Method Room Air 01/17/25 06:04 Operation Date: 01/17/25 07:35 Proposed Procedures p RIGHT Carpal Tunnel Release(Right) - Zack [place], DO s RIGHT Cubital Tunnel Release(Right) - Zack [place], DO s POSSIBLE RIGHT Ulnar Nerve Transposition(Right) - Zack [place], DO Familial anesthetic complications: None Was Beta Brent taken within 24 hours: N/A Was Clonidine taken within 24 hours: N/A Last intake: Intake Last Liquid Date 01/16/25 Last Liquid Time 20:00 Last Solid Date 01/16/25 Last Solid Time 20:00 Social Tobacco and No alcohol Exam alert, oriented x 3, clear to auscultation bilaterally and regular rate & rhythm Airway Mallampati: Class II Pulmonary Chronic Obstructive Pulmonary Disease CV/HEM Coronary Artery Disease and Hypertension GI Gastroesophageal Reflux Disease Metabolic Diabetes Mellitus, Hyperlipidemia and Morbid Obesity Neuropsych Cerebrovascular Accident (? TIA) Anesthetic Plan Anesthesia: General Risk of > 500 ml blood loss (7ml/kg in children): No Medications/Allergies Home Medications ?Medication ?Instructions ?Recorded ?Confirmed ?Last Taken ?Type albuterol sulfate 90 mcg/actuation 2 puff inhalation Q6H PRN 04/20/19 01/16/25 Unknown History aerosol inhaler (ProAir HFA) Shortness Of Breath budesonide-formoterol HFA 160 2 puff inhalation BID PRN 05/02/19 01/16/25 05/01/19 History mcg-4.5 mcg/actuation aerosol Shortness Of Breath inhaler (Symbicort) ergocalciferol (vitamin D2) 1,250 50,000 unit PO Q7D 05/02/19 01/16/25 01/02/25 History mcg (50,000 unit) capsule rosuvastatin 40 mg tablet 40 mg PO DAILY 09/16/21 01/16/25 01/15/25 History ASO to left #1 ea 01/11/24 12/05/24 Unknown Rx right knee economy hinged brace #1 ea 08/07/24 12/05/24 Unknown Rx clopidogrel 75 mg tablet 75 mg PO DAILY 10/01/24 01/16/25 01/09/25 History isosorbide mononitrate 30 mg 30 mg PO DAILY #90 tabs 10/01/24 01/16/25 01/15/25 Rx tablet,extended release 24 hr metoprolol succinate 25 mg 12.5 mg (1/2 x 25 mg) PO DAILY #45 10/01/24 01/16/25 01/15/25 Rx tablet,extended release 24 hr tabs nitroglycerin 0.4 mg sublingual 0.4 mg sublingual Q5M PRN chest 10/01/24 01/16/25 Unknown Rx tablet pain #20 tabs omeprazole 40 mg capsule,delayed 40 mg PO DAILY 10/01/24 01/16/25 01/15/25 History release oxybutynin chloride 5 mg tablet 5 mg PO DAILY 10/01/24 01/16/25 01/15/25 History pioglitazone 15 mg tablet 15 mg PO DAILY 10/01/24 01/16/25 01/15/25 History aspirin 81 mg tablet,delayed 81 mg PO DAILY 11/12/24 01/16/25 01/09/25 History release Hinged Knee Brace #1 ea 12/05/24 12/05/24 Unknown Rx celecoxib 200 mg capsule (Celebrex) 200 mg PO BID 30 days #60 caps 12/05/24 01/16/25 01/09/25 Rx diclofenac sodium 50 mg 50 mg PO BID 01/16/25 01/16/25 01/15/25 History tablet,delayed release duloxetine 30 mg capsule,delayed 30 mg PO DAILY 01/16/25 01/16/25 01/15/25 History release hydroxyzine HCl 25 mg tablet 25 mg PO TID PRN Anxiety 01/16/25 01/16/25 01/15/25 History lisinopril 40 mg tablet 40 mg PO DAILY 01/16/25 01/16/25 01/15/25 History loratadine 10 mg tablet (Claritin) 10 mg PO DAILY 01/16/25 01/16/25 01/15/25 History rizatriptan 10 mg disintegrating 10 mg PO Q2H PRN headaches 01/16/25 01/16/25 01/14/25 History tablet tirzepatide (weight loss) 10 10 mg SUBCUT Q7D 01/16/25 01/16/25 01/09/25 History mg/0.5 mL subcutaneous pen injector (Zepbound) Allergies Allergy/AdvReac Type Severity Reaction Status Date / Time adhesive tape Allergy Rash Verified 01/16/25 14:01 gabapentin Allergy Hives Verified 01/16/25 14:01 oseltamivir (From Tamiflu) Allergy ALGY-Wheezi Verified 01/16/25 14:01 ng exenatide (From Bydureon) AdvReac ADR-Headach Verified 01/16/25 14:01 e metformin AdvReac ADR-Nausea Verified 01/16/25 14:01 Current Medications Generic Name Dose Route Start Last Admin Trade Name Freq PRN Reason Stop Dose Admin Sodium Chloride 1,000 mls @ 30 mls/hr 01/17/25 06:00 01/17/25 06:22 Sodium Chloride 0.9% IV 01/18/25 05:59 30 mls/hr .Q24H EVANGELINA Administration PFSH Anesthesia Medical History (Updated 12/19/24 @ 11:39 by JOSE MARIA Proctor) Leukocytosis Microhematuria Surgical History H/O: hysterectomy History of cholecystectomy History of tubal ligation Family History Father Diabetes Hyperlipidemia Grandmother Diabetes Hypertension Stroke Sister Hypertension Brother Heart disease Social History Smoking and tobacco/nicotine status: current every day tobacco/nicotine user cigarettes Packs smoked per day: 0.5 Alcohol intake: never Substance/Drug Use: never Lives independently: No Household members: children Marital status: Life Partner Current occupational status: unemployed Current gender identity: Female Data Anesthesia Cardiac Studies: Echocardiogram 11/29/24
--- NOTE | 2025-01-17 06:54 | W.PM.OPSUD ---
Surgery/Procedure H&P Update DATE OF PROCEDURE: January 17, 2025 DATE H&P PERFORMED: 12/19/24 H&P UPDATE INFORMATION: I have reviewed H&P completed within last 30 days, I have examined patient prior to procedure and No changes to prior documentation PREOP DIAGNOSIS: Right carpal tunnel syndrome, right cubital tunnel syndrome PRIMARY INDICATION FOR PROCEDURE: Right carpal tunnel syndrome, right cubital tunnel syndrome PLANNED PROCEDURE: Operation Date: 01/17/25 07:35 Proposed Procedures p RIGHT Carpal Tunnel Release(Right) - DO oliverio Moncada RIGHT Cubital Tunnel Release(Right) - DO oliverio Moncada POSSIBLE RIGHT Ulnar Nerve Transposition(Right) - Zack Adair DO
[2025-01-17] MEDS: ceFAZolin 2,000 MG in sodium chloride 0.9% (plus) 50 ML 100 MG IV (07:31)
[2025-01-17] MEDS: lidocaine-epi 1% 20 mL INJ 10 ML INJECTION (07:59)
[2025-01-17] MEDS: ROPivacaine 0.5% SDV 30 mL 50 MG INJECTION (07:59)
--- NOTE | 2025-01-17 08:33 | PM.OP ---
Operative Report Date of procedure: January 17, 2025 Surgeon: Zack Adair DO Survey Cad Technician: Edgardo Adair PA-C: PA was necessary for assistance in this case with hand positioning to execute the procedure, retraction and protection of neurovascular structures as well as to assist with wound closure and dressing application. Procedure: Preoperative diagnosis: Right carpal tunnel syndrome Right cubital tunnel syndrome Postop Diagnosis: Same Procedure done: Right carpal tunnel release Right?cubital tunnel tunnel release (ulnar nerve decompression at elbow) Surgeon: Zack Adair DO Estimated blood loss: 10mL Tourniquet? 19 minutes IV fluids: 800 mL Complications: None Findings: See operative report narrative Condition: stable Disposition: same day Brief History: Patient's been seen and worked up in the outpatient setting and findings consistent with preoperative diagnosis.? Patient has right carpal tunnel syndrome as well as right?cubital tunnel syndrome which has been worked up in the outpatient setting has physical exam findings consistent with this as well as confirmatory nerve conduction/EMG nerve conduction study consistent with diagnosis.? Patient's failed conservative treatment.? As result through shared decision making agreed to proceed with? right carpal tunnel and right?cubital tunnel release with possible ulnar nerve transposition. We talked about treatment options as far as nonoperative and operative intervention.? Understands risk benefits complication alternatives surgical nonsurgical treatment options.? Understanding patient's risks patient agrees to proceed with surgical intervention. Understanding these risks patient agrees to proceed with surgery.? Consent obtained in preoperative holding area. Procedure: Patient seen evaluate in the preoperative holding area.? Consent was reviewed and signed with patient.? Correct extremity marked.? Patient seen evaluated by anesthesia department once cleared for surgery was then taken back to the operative suite placed in supine position all bony prominences well-padded patient properly secured to bed.? right upper extremity placed onto armboard.? Nonsterile tourniquet applied right upper arm.? Patient then underwent anesthesia per the anesthesia department.? Patient's right upper extremity was then prepped and draped in standard orthopedic fashion.? Final timeout performed.? Patient received appropriate preoperative antibiotics. Esmarch was used exsanguinate the right upper extremity.? Tourniquet was insufflated to 250 mmHg. I started with the carpal tunnel release first.? I made a standard open carpal tunnel release starting with the distal most extent in the palm at the Liriano's cardinal line and the incision line was made in line with the fourth ray and ended just distal to the wrist crease.? Sharp scalpel incision was made through skin and subcutaneous tissue I then utilizing self retainer then began to dissect with dissection scissors split longitudinally the palmar fascia.? Next I then utilizing my doctor's assistant Digna retractors subsequently utilizing scalpel feathered through the palmaris brevis as well as through the transverse carpal ligament distally.? Once I encountered the floor of the transverse carpal ligament and entered into the carpal tunnel I then switched to dissection scissors.? Carefully released the distal extent of the transverse carpal ligament to the palmar fat.? Care was to protect the recurrent branch and not injured this during this part of the case.? Next I then placed a [place] underneath the transverse carpal ligament proximally to protect the nerve in the carpal tunnel contents.? And then I subsequently under loupe magnification utilize my dissection scissors to release the transverse carpal ligament into the antebrachial fascia under direct visualization with care to keep my scissors with a curved ulnarly away from the palmar cutaneous branch.? The transverse carpal was then completely decompressed proximally and a [place] was then placed both distally and proximally throughout the carpal tunnel and had complete decompression of the nerve.? The nerve did appear to have hourglass shape as it went through the carpal tunnel.? With significant irritation noted around the nerve.? No masses were noted within the contents of the carpal tunnel.? This completed the carpal tunnel release and then I subsequently irrigated the wound bed and placed a wet Ray-Lorna into the incision for later closure. Next marked out the landmarks of the right elbow of the medial epicondyle and olecranon and made a curvilinear incision following the course of the ulnar nerve at the medial aspect of the elbow.? Sharp scalpel incision was made through skin and subcutaneous tissue.? Next I switched to Littler dissection scissors and spread in plane of the medial antebrachial cutaneous nerve branching which was protected throughout this part of the dissection.? Then I directly came down over the fascia and identified the 2 heads of the FCU fascia and split this right in the middle and subsequently identified my ulnar nerve distally.? This was then completely released distally under direct visualization and loupe magnification.? Once the nerve was then identified I then subsequently tracked this proximally and released this through Lilly's ligament as well as complete decompression of the nerve proximally all the way past the intermuscular septum.? The nerve was completely released and decompressed both proximally and distally.? Ulnar nerve neurolysis performed and completed both proximally and distally with dissection scissors.? I then took the elbow through range of motion and there was no instability or subluxating of the ulnar nerve.? This completed?cubital tunnel release.? ?Next the wound bed was thoroughly irrigated.? Tourniquet was deflated.? Hemostasis was satisfactory at the?cubital tunnel release surgery site. I then inspected the carpal tunnel incision and this was found to have satisfactory hemostasis and all this was maintained through bipolar electrocautery.? At this point time I sequentially closed?cubital tunnel site with 3-0 Vicryl suture in a running horizontal mattress nylon stitch.? ? The carpal tunnel release surgery was then closed in standard interrupted mattress fashion.? Dressing was Xeroform 4 x 4's ABD Curlex soft roll and an Yadiel wrap has a bulky soft dressing and sling. Patient was then awakened from anesthesia and taken to PACU in stable condition. Disposition: Patient taken to PACU in stable condition recovering well.? Patient will receive appropriate discharge instructions as well as pain medication postoperatively.? We will follow-up with me in the office in 2 weeks.? Patient understands agrees with current plan.? All questions answered.? Patient understands if any questions or concerns and contact the office for follow-up appointment.
--- NOTE | 2025-01-17 08:42 | P.BOP_ITS ---
Date of Procedure: [January 17, 2025] Surgeon: [Dr. Adair DO] Salon Shampoo Assistant(s): [Edgardo Adair PA-C] Procedure(s) performed: [Right carpal tunnel release and right cubital tunnel release] Findings of the procedure(s): [Right carpal tunnel syndrome and right cubital tunnel syndrome. No subluxation of ulnar nerve with range of motion so no transposition performed. Procedure went well and is planned.] Estimated blood loss: [10 mL] Specimen(s) removed: [N/A] Post-operative diagnosis: [Right carpal tunnel syndrome and right cubital tunnel syndrome]
--- NOTE | 2025-01-17 08:48 | PM.PACU ---
PACU note Narrative: Patient is a 44-year-old female who just underwent a right carpal tunnel release and right cubital tunnel release. Patient transferred to PACU in stable condition. Pain is well controlled. Dressing on hand is dry and in place. Patient's fingers are warm and well-perfused. Patient can wiggle fingers. normal cap refill under 2 seconds. Patient has normal elbow range of motion. Sensation to hand intact. Exam: awake Disposition: discharged
--- NOTE | 2025-01-17 09:50 | ANE.PACU2 ---
Inpatient post-anesthesia follow up: Airway intact: Yes Vital signs: Temperature 98 F Pulse Rate 53 Respiratory Rate 18 Blood Pressure 128/87 Pulse Oximetry 98 Oxygen Delivery Me thod Room Air Oxygen Flow Rate Fraction of Inspir ed Oxygen Hydration adequate: Yes Nausea and vomiting: No Pain level: 1 Mental status: Baseline
== END 2025-01-17 09:52 | disposition home or self-care (01) ==
PROVIDERS: PCP Family Medicine; Visit Provider Student in an Organized Health Care Education/Training Program
PROC: (CPT 64721; principal; 2025-01-17 07:35)
PROC: (CPT 64718; 2025-01-17 07:35)
DX: G56.01 Carpal tunnel syndrome, right upper limb (principal); G56.21 Lesion of ulnar nerve, right upper limb; J44.9 Chronic obstructive pulmonary disease, unspecified; I25.10 Atherosclerotic heart disease of native coronary artery without angina pectoris; I10 Essential (primary) hypertension; K21.9 Gastro-esophageal reflux disease without esophagitis; E11.9 Type 2 diabetes mellitus without complications; E78.5 Hyperlipidemia, unspecified; E66.01 Morbid (severe) obesity due to excess calories; Z68.37 Body mass index [BMI] 37.0-37.9, adult; Z86.73 Personal history of transient ischemic attack (TIA), and cerebral infarction without residual deficits; Z79.82 Long term (current) use of aspirin; F17.210 Nicotine dependence, cigarettes, uncomplicated
CPT/HCPCS: 64718; 64721; 36416; 82962; J0131; J0690; J1100; J1885; J2250; J2405; J2704; J2795; J3010; J7030; J9999

== ENCOUNTER → 2025-01-30 09:45 | Outpatient (BNVA) | payer MEDICAID, SELFPAY | PROVIDERS: PCP Family Medicine; Visit Provider Physician Assistant | DX: Z98.890 Other specified postprocedural states (principal) | CPT/HCPCS: 99024 ==

== ENCOUNTER → 2025-03-13 08:31 | Outpatient (BNVA) | payer MEDICAID, SELFPAY | PROVIDERS: PCP Family Medicine; Visit Provider Physician Assistant | DX: G56.02 Carpal tunnel syndrome, left upper limb (principal); G56.22 Lesion of ulnar nerve, left upper limb; Z98.890 Other specified postprocedural states | CPT/HCPCS: 99214 ==

== ENCOUNTER 2025-03-22 07:53 | Outpatient (CLI) | payer MEDICAID, SELFPAY ==
--- NOTE | 2025-03-22 08:45 | MR_ITS ---
WS: [id number] MRI RIGHT KNEE NONCONTRAST TECHNIQUE: Axial PD, coronal PD fat sat, coronal PD, sagittal PD, and sagittal PD fat-sat images obtained. CLINICAL INFORMATION: right knee pain/new injury/trauma COMPARISON: MRI 11/29/2024 FINDINGS: Distal quadriceps and patella tendons are intact. Hypertrophic patella. Normal ACL and PCL. Medial and lateral meniscus appear intact. No acute appearing meniscal tears. Normal bone marrow signal in the femoral condyles and tibial plateau. Medial and lateral collateral ligaments appear intact. Mild chondromalacia patella. Medial and patellar retinacula appear intact. Again seen is a small amount of fluid along the distal LCL insertion and anterior fibula which is stable compared to previous. No other suspicious findings or interval changes. MR/MR knee RT wo con* [id number] IMPRESSION: 1. Normal ACL and PCL. 2. Mild chondromalacia patella. 3. No acute appearing meniscal tears. 4. Trace fluid at the LCL insertion distally and along the anterior ligament o f the fibula head. This is unchanged compared to previous and may be incidental 5. No other acute findings or interval changes Outbridge grading: grade II: blister-like swelling/fraying of articular cartila ge extending to surface
== END 2025-03-22 07:54 | disposition home or self-care (01) ==
LOC: RAD 07:54
PROVIDERS: PCP Family Medicine; Visit Provider Student in an Organized Health Care Education/Training Program
DX: S89.91XA Unspecified injury of right lower leg, initial encounter (principal); M22.41 Chondromalacia patellae, right knee; S83.204A Other tear of unspecified meniscus, current injury, left knee, initial encounter; X58.XXXA Exposure to other specified factors, initial encounter
CPT/HCPCS: 73721

== ENCOUNTER → 2025-04-02 08:46 | Outpatient (BNVA) | payer MEDICAID, SELFPAY | PROVIDERS: PCP Family Medicine; Visit Provider Student in an Organized Health Care Education/Training Program | DX: M17.11 Unilateral primary osteoarthritis, right knee (principal); Z51.89 Encounter for other specified aftercare | CPT/HCPCS: 20610; 99213; J3301; J9999 ==